=== PATIENT | male | born 1995 | race Two or more races ===

== ENCOUNTER 2022-04-28 15:24 | Emergency (ER) | payer MEDICAID, OTHER ==
[~2022-04-28] VITALS: Ht 172.7 cm; Wt 70.0 kg
[2022-04-28] MEDS ORDERED: NALOXONE HCL 0.4 MG/ML VIAL IV ONE (15:30)
[2022-04-28 16:36] LABS: Salicylate < 1.7 mg/dL (2.8-20.0)
[2022-04-28 16:39] LABS: Hematocrit 46.7 % (41.0-53.0); Hemoglobin 15.8 g/dL (13.5-17.5); Mean Corpuscular Hemoglobin 31.7 pg (28.0-32.0); Mean Corpuscular Hgb Conc. 33.8 g/dL (32.0-36.0); Mean Corpuscular Volume 93.9 fL (80.0-100.0); Red Blood Cells 4.97 10^6/uL (4.5-5.90); Red Cell Distribution Width 14.4 % (11.8-14.3)
[2022-04-28 16:41] LABS: Band Neutrophils % (manual) 0; Basophils % (manual) 0 (0.0-2.0); Blast Cells 0; Metamyelocytes % 0; Myelocytes % 0; Promyelocytes % 0; Reactive Lymphocytes 0
[2022-04-28 16:44] LABS: Acetaminophen < 2.0 ug/mL (10-30)
[2022-04-28 16:48] LABS: Alanine Aminotransferase 57 U/L (16-61); Albumin 4.7 g/dL (3.4-5.0); Alkaline Phosphatase 110 U/L (45-117); Anion Gap 13 (5-15); Aspartate Aminotransferase 28 U/L (15-37); BUN/Creatinine Ratio 11.7; Bilirubin, Total 0.6 mg/dL (0.2-1.0); Blood Alcohol < 3.0 mg/dL (0-5); Blood Urea Nitrogen 17 mg/dL (7-18); Carbon Dioxide 23 mmol/L (21-32); Chloride 100 mmol/L (98-107); GFR African American 76 mL/min; GFR Non-African American 63 mL/min; Glucose 244 mg/dL (74-106); Potassium 3.7 mmol/L (3.5-5.1); Sodium 136 mmol/L (136-145); Total Protein 8.8 g/dL (6.4-8.2)
[2022-04-28 17:16] LABS: Lymphocytes % (manual) 26 (10.0-50.0)
[2022-04-28 17:17] LABS: Eosinophils % (manual) 1 (0-7); Monocytes % (manual) 7 (0-12)
[2022-04-28 21:48] VITALS: BP 152/85
== END 2022-04-28 21:53 | disposition home or self-care (01) ==
LOC: EDBD 15:24 → ER 15:24
DX: T40.411A Poisoning by fentanyl or fentanyl analogs, accidental (unintentional), initial encounter (principal); S01.01XA Laceration without foreign body of scalp, initial encounter; Z88.0 Allergy status to penicillin; X58.XXXA Exposure to other specified factors, initial encounter; Y93.89 Activity, other specified; Y92.89 Other specified places as the place of occurrence of the external cause; Y99.8 Other external cause status
CPT/HCPCS: 12002; 36415; 80053; 80320; 80329; 85007; 85027; 93005

== ENCOUNTER 2023-11-15 13:38 | Emergency (ER) | payer MEDICAID ==
[~2023-11-15] VITALS: Ht 182.9 cm; Wt 79.0 kg
[2023-11-15] MEDS: SODIUM CHLORIDE 0.9% 1,000 ML IVB ONE (14:18)
[2023-11-15 14:20] VITALS: PULSE 81; RESP 18; TEMP 97.8; O2SAT 98
[2023-11-15] MEDS: PANTOPRAZOLE 40 MG/10 ML VIAL INJ IV ONE (14:21)
[2023-11-15] MEDS: PROCHLORPERAZINE EDISYLATE 5 MG/ML 2ML VIAL IV ONE (14:21)
[2023-11-15 14:22] LABS: Basophils # (auto) 0.1 10 ^3/uL (0-0.2); Eosinophils # (auto) 0.1 10 ^3/uL (0-0.8); Eosinophils % (auto) 0.5 % (0.0-7.0); Lymphocytes # (auto) 1.9 10 ^3/uL (0.4-5.4); Monocytes # (auto) 0.9 10 ^3/uL (0-1.3)
[2023-11-15] MEDS: MORPHINE SULFATE 4 MG/ML SYR/VIAL IV ONE (14:22)
[2023-11-15 14:28] LABS: Basophils % (auto) 0.4 % (0.0-2.0); Hematocrit 44.4 % (41.0-53.0); Hemoglobin 15.2 g/dL (13.5-17.5); Lymphocytes % (auto) 14.3 % (10.0-50.0); Mean Corpuscular Hemoglobin 31.7 pg (28.0-32.0); Mean Corpuscular Hgb Conc. 34.3 g/dL (32.0-36.0); Mean Corpuscular Volume 92.4 fL (80.0-100.0); Monocytes % (auto) 6.6 % (0.0-12.0); Neutrophils # (auto) 10.5 10 ^3/uL (1.6-8.6); Neutrophils % (auto) 78.2 % (37.0-80.0); Platelet Count (auto) 585 10^3/uL (140-450); Red Cell Distribution Width 15.2 % (11.8-14.3); White Blood Cell 13.5 10^3/uL (4.4-10.8)
[2023-11-15 14:40] LABS: Alanine Aminotransferase 38 U/L (7-40); Albumin 5.3 g/dL (3.2-4.8); Alkaline Phosphatase 100 U/L (46-116); Anion Gap 4 (5-15); Aspartate Aminotransferase 31 U/L (13-40); Bilirubin, Total 0.7 mg/dL (0.2-1.0); Blood Urea Nitrogen 13 mg/dL (9-23); Calcium 10.8 mg/dL (8.7-10.4); Carbon Dioxide 29 mmol/L (20-30); Chloride 105 mmol/L (98-107); Glucose 92 mg/dL (74-106); Lipase 66 U/L (12-53); Potassium 4.4 mmol/L (3.5-5.1); Sodium 138 mmol/L (136-145); Total Protein 8.6 g/dL (5.7-8.2)
[2023-11-15 14:52] VITALS: BP 138/93; PULSE 82; RESP 20
[2023-11-15] MEDS ORDERED: ZOFR4T PO (16:32)
[2023-11-15] MEDS ORDERED: PANT40TA2 PO (16:32)
== END 2023-11-15 16:47 | disposition home or self-care (01) ==
LOC: ER 13:38
DX: F12.90 Cannabis use, unspecified, uncomplicated (principal); R11.2 Nausea with vomiting, unspecified; R53.1 Weakness; F10.90 Alcohol use, unspecified, uncomplicated; Z98.890 Other specified postprocedural states; Z79.899 Other long term (current) drug therapy; Y90.0 Blood alcohol level of less than 20 mg/100 ml
CPT/HCPCS: 36415; 80053; 83690; 85025; 96361; 96374; 96375; 99284; J0780; J2270; J2470; J7030

== ENCOUNTER 2024-03-13 19:46 | Inpatient (IN) | payer MEDICAID ==
[~2024-03-13] VITALS: Ht 177.8 cm; Wt 76.5 kg
[~2024-03-13 19:46] MED LIST: PANT40TA2 PO; ZOFR4T PO
[2024-03-13 19:50] VITALS: PULSE 116; RESP 19; O2SAT 99
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
[2024-03-14] VITALS (82 sets, daily range): BP systolic 94–144; BP diastolic 48–92; PULSE 75–127; RESP 15–22; TEMP 99.3–102.9; O2SAT 93–100
[2024-03-14] MEDS: PROPOFOL 100 ML IV ONE (02:00)
[2024-03-14] MEDS: ROCURONIUM 10MG/ML 10ML VIAL IV ONE ×2 (02:00→02:09)
[2024-03-14] MEDS: NALOXONE HCL 1MG/ML 2ML SYRINGE ONE (02:01)
[2024-03-14] MEDS: NALOXONE HCL 0.4 MG/ML VIAL ONE (02:01)
[2024-03-14] MEDS: ETOMIDATE (2MG/ML) 20ML VIAL IV ONE ×2 (02:01→02:08)
--- NOTE | 2024-03-14 02:09 | ED.PDOC ---
Was a procedure done? Was a procedure done?: Yes Sedation Sedation?: Yes Informed consent obtained: No Sedation start time: 01:49 Sedation end time: 02:08 Sedation total time: 19 minutes Central Line Recorder of insertion practice: Sample Carrier Occupation of limited radiology technician: Attending Physician Indication: Volume resuscitation Room prepared for procedure: Yes Sample Carrier performed hand hygien: Yes Maximal sterile barrier precau: Mask/Eye shield, Sterile gown, Cap, Sterlie gloves, Large sterlie drape Skin Preparation: Chlorhexidine gluconate, Providine iodine Skin preparation completely dr: Yes Insertion site: Right, Femoral Central line catheter type: Ufp-[id number]-dah dialysis Number of lumens: 3 Central line exchanged over a: No Antiseptic ointment applied to: No Post Assessment: Chest X-Ray, Proper placement Informed consent obtained: No Risks/benefits/alt described: No Intubation Indication: Respiratory Insufficiency, Altered Mental Status Prep: Preoxygenation Pretreated with: Nothing Medicated with: Other (100mg rocuronium and 20mg etomidate IVP at 0149) Intubation Approach: Orotracheal (8.0 ETT size ) Intubation size: cm (24) Informed consent obtained: No Risks/benefits/alt described: No I personally scribed for REENA MAI MD ([email or web address]) on 03/14/24 at 02:09. Electronically submitted by Marcial Beth [email or web address]). REENA MAI MD Mar 14, 2024 02:09
[2024-03-14] MEDS: PROPOFOL 100 ML IV SCH (02:10)
[2024-03-14] MEDS: NALOXONE HCL 1MG/ML 2ML SYRINGE IV ONE ×2 (02:10)
--- NOTE | 2024-03-14 02:14 | ED.PDOC ---
Departure 1 Departure Time of Disposition: 02:11 (Patient was clinically sober tolerating p.o. and feeling well. Patient's mom was on her way to pick patient up patient then asked to use the restroom. Patient was went to the restroom spent a long time there and when he returned from the rest room he was somnolent. He laid down and became unresponsive. We gave him narcan without effect, he was intubated and central line placed emergent. Patient was found to have an empty bag in his pocket with residual white powder. ) Impression: Primary Impression: Polysubstance abuse Additional Impressions: Opiate overdose Qualified Codes: T40.601A - Poisoning by unspecified narcotics, accidental (unintentional), initial encounter Acute respiratory failure Qualified Codes: J96.01 - Acute respiratory failure with hypoxia Disposition: ADMITTED INPATIENT Admit to: ICU Condition: Critical Discharged With: Self REENA MAI MD Mar 14, 2024 02:14
[2024-03-14 02:15] LABS: Urine Bacteria None Seen /hpf (None Seen)
[2024-03-14] MEDS: fentaNYL Drip 2500mCg/250mlNS 250 ML IV SCH (02:36)
[2024-03-14 02:37] LABS: Urine Blood Negative /uL (Negative); Urine Clarity Clear (Clear); Urine Color Light-Yellow (Yellow); Urine Mucus FEW (None Seen); Urine Protein, UAD 1+ (Negative); Urine Specific Gravity 1.019 (1.001-1.035); Urine Squamous Epithelial Cell FEW /hpf (<5); Urine Urobilinogen Normal (Negative); Urine WBC 2 /hpf (0 - 3); Urine pH 6.5 (5.0-9.0)
[2024-03-14 02:46] LABS: Amphetamine Screen, Urine Neg (NEGATIVE); Barbiturate Scree,Urine Neg (NEGATIVE); Benzodiazephine Screen, Urine Pos (NEGATIVE); Cannabinoid Screen, Urine Pos (NEGATIVE); Cocaine Screen, Urine Pos (NEGATIVE); Opiate Scree,Urine Neg (NEGATIVE); Phencyclidine Screen, Urine Neg (NEGATIVE)
[2024-03-14] MEDS: MIDAZOLAM DRIP 50 mg/50mL 50 ML IV SCH (03:15)
--- NOTE | 2024-03-14 03:18 | DVHHPRES ---
History of Present Illness Resident Creating Document: MERLE FORTUNE RESIDENT History of Present Illness A 28-year-old male with past medical history of hypertension who was brought in by EMS due to decreased responsiveness and ALOC. On scene, pt was unresponsive with blood glucose 263, he was given 8mg Narcan by Law enforcement followed by another 4mg by EMS (possibly intranasal). On arrival to the ER, patient was AOx1, which progressively improved to AOx4 over a couple of hours, patient ate and drank and was ambulating normally. Patient's mother was called and she stated she will come pick her son up. While awaiting pickup, Patient went to use the restroom, after spending a long time in the restroom patient was back, while speaking to the RN, he started nodding off, patient was noted to have SpO2 of 65% on RA and became unresponsive, he was subsequently given Narcan to which he did not respond. Patient was emergently intubated. A small empty packet wit h whitish residue was found in patient's pocket. Past Medical History Hypertension Family History Denies Past Social History Unable to obtain complete social history as patient intubated Review of Systems Review of Systems Unable to complete review of systems as patient intubated Allergies: Coded Allergies: Penicillins (Verified Allergy, Unknown, 03/14/24) Medications Current Medications Medications Dose Ordered Sig/Karlee Route Start Time Stop Time Status Last Admin Dose Admin Propofol 100 ml @ 6 mls/hr [id number] IV 03/14/24 02:00 03/14/24 02:10 6 MLS/HR Midazolam HCl 50 ml @ 1 mls/hr Q24H IV 03/14/24 02:15 Fentanyl Citrate 250 ml @ 2.5 mls/hr Q24H IV 03/14/24 02:15 03/14/24 02:36 2.5 MLS/HR Norepinephrine Bitartrate 250 ml @ 3.75 mls/hr Q24H IV 03/14/24 02:15 Exam Vital Signs Vital Signs Date Time Temp Pulse Resp B/P (MAP) Pulse Ox O2 Delivery O2 Flow Rate FiO2 03/14/24 02:36 127/71 03/14/24 02:00 16 98 40 03/14/24 00:00 94 03/13/24 19:50 Nasal Cannula* 2 03/13/24 19:50 98.4 98.4 General Appearance: Other (Patient intubated and on mechanical ventilation) Respiratory: Clear to auscultation, Normal air movement Cardiovascular: Regular rate, Normal S1, Normal S2, Other (Tachycardic) Abdominal: Soft, No tenderness Extremities: No clubbing, No cyanosis, No edema Skin: No rashes, No significant lesion Neuro: Other (Patient intubated) Labs/Xrays Labs Test 03/14/24 02:00 Range/Units Urine Color Light-yellow Yellow Urine Clarity Clear Clear Urine pH 6.5 5.0-9.0 Urine Specific [place] 1.019 1.001-1.035 Urine Protein 1+ H Negative Urine Ketones Negative Negative Urine Blood Negative Negative /uL Urine Nitrite Negative Negative Urine Bilirubin Negative Negative Urine Urobilinogen Normal Negative mg/dL Urine Leukocyte Esterase Negative Negative /uL Urine RBC 1 0 - 3 /hpf Urine WBC 2 0 - 3 /hpf Urine Squamous Epithelial Cells Few <5 /hpf Urine Bacteria None seen None Seen /hpf Urine Mucus Few None Seen Urine Glucose 2+ H Normal mg/dL Urine Opiates Screen Neg NEGATIVE Urine Fentanyl Screen Pos NEGATIVE Urine Barbiturates Screen Neg NEGATIVE Urine Phencyclidine Screen Neg NEGATIVE Urine Amphetamines Screen Neg NEGATIVE Urine Benzodiazepines Screen Pos NEGATIVE Urine Cocaine Screen Pos NEGATIVE Urine Cannabinoids Screen Pos NEGATIVE Assessment/Plan Assessment/Plan Drug overdose Respiratory acidosis with compensatory metabolic alkalosis; due to above - UDS positive for fentanyl, cocaine, benzodiazepine, cannabis - intubated and mechanically ventilated - ordered CK, serum acetaminophen levels, serum alcohol Possible aspiration pneumonia sepsis d/t above - CXR: Patchy consolidations in right mid and lower lungs. Age-indeterminate fracture of lateral end of the left 2nd rib. Endotracheal tube is noted with its distal end located approximately 3.3 cm proximal to the angus, in appropriate position. Nasogastric tube is noted with its distal end in the stomach in appropriate position. - IV zosyn, IV azithromycin - NS 1 L bolus, IV NS at 100 cc/hour maintenance - blood cultures, respiratory cultures, lactic acid, COVID and influenza testing - ordered MRSA screen Opioid use disorder PUD prophylaxis: protonix 40mg DVT prophylaxis: Lovenox 40mg SC Goals of care: Full code, discussed for >12 minutes with Patient's mother Ms. Flores at [phone] Che Plan discussed with: Patient, Other (RN) Date of Service: Mar 14, 2024 Billing Provider: CHANCE CHE MD Common Visit Codes: [id number] INP/OBS CARE (HIGH) MERLE FORTUNE RESIDENT Mar 14, 2024 03:18 CHANCE CHE MD Mar 15, 2024 12:17
--- NOTE | 2024-03-14 03:28 | DVH ---
Examination: CXR1 Clinical Indication: INTUBATION Comparison: None. Technique: Frontal radiograph of the chest were obtained. Findings: Limited evaluation, as the patient is in rotation. Inhomogeneous radiopacities in right mid and lower lungs, suggestive of patchy consolidations. No pl eural effusion on either side in current study. There is no pneumothorax. Endotracheal tube is noted with its distal end located approximately 3.3 cm proximal to the angus, i n appropriate position. No evidence of cardiomegaly. Nasogastric tube is noted with its distal end in the stomach, in appropriate position. Orthopedic fixation hardware is noted over in upper lumbar spine, along with hypodensity noted over t he cardiac shadow in the left paramedian location, postoperative changes. Please correlate with oper ative history. Age-indeterminate fracture of lateral end of the left 2nd rib. Impression: 1. Patchy consolidations in right mid and lower lungs. 2. Age-indeterminate fracture of lateral end of the left 2nd rib. 3. Endotracheal tube is noted with its distal end located approximately 3.3 cm proximal to the osmar a, in appropriate position. 4. Nasogastric tube is noted with its distal end in the stomach in appropriate position. Electronically Signed 03/14/2024 03:28 Yohan Fitzpatrick
[2024-03-14 03:50] LABS: Base Excess 0.8 mmol/L (-2.0-3.0)
[2024-03-14 03:56] LABS: Hemoglobin 13.4 g/dL (13.5-17.5)
[2024-03-14 03:58] LABS: Basophils # (auto) 0.2 10 ^3/uL (0-0.2); Eosinophils # (auto) 0 10 ^3/uL (0-0.8); Hematocrit 40.9 % (41.0-53.0); Lymphocytes # (auto) 0.7 10 ^3/uL (0.4-5.4); Lymphocytes % (auto) 2.7 % (10.0-50.0); Mean Corpuscular Hemoglobin 31.9 pg (28.0-32.0); Mean Corpuscular Hgb Conc. 32.7 g/dL (32.0-36.0); Mean Corpuscular Volume 97.4 fL (80.0-100.0); Monocytes # (auto) 1.6 10 ^3/uL (0-1.3); Monocytes % (auto) 6.6 % (0.0-12.0); Neutrophils # (auto) 21.9 10 ^3/uL (1.6-8.6); Neutrophils % (auto) 89.7 % (37.0-80.0); Nucleated Red Blood Cells % 0.1 %; Platelet Count (auto) 520 10^3/uL (140-450); Red Cell Distribution Width 14.5 % (11.8-14.3); White Blood Cell 24.4 10^3/uL (4.4-10.8)
[2024-03-14] MEDS ORDERED: PIPERACILLIN-TAZOB 3.375GM 100 ML IV SCH (04:30)
[2024-03-14 04:34] LABS: Alanine Aminotransferase 24 U/L (7-40); Albumin 4.5 g/dL (3.2-4.8); Alkaline Phosphatase 75 U/L (46-116); Anion Gap 5 (5-15); Aspartate Aminotransferase 30 U/L (13-40); BUN/Creatinine Ratio 11.4 (10.0-20.0); Blood Urea Nitrogen 12 mg/dL (9-23); Calcium 9.9 mg/dL (8.7-10.4); Carbon Dioxide 27 mmol/L (20-31); Chloride 107 mmol/L (98-107); Potassium 4.1 mmol/L (3.5-5.1); Sodium 139 mmol/L (136-145)
[2024-03-14 04:35] LABS: Bilirubin, Total 0.6 mg/dL (0.2-1.0)
[2024-03-14 04:39] LABS: Blood Alcohol < 3.0 mg/dL (<10); Creatine Kinase IFCC 252 U/L (46-171); Glucose 146 mg/dL (74-106)
[2024-03-14] MEDS: AZITHROMYCIN 500MG/ 250ML 250 ML IV SCH (04:56)
[2024-03-14] MEDS: SODIUM CHLORIDE 0.9% 1,000 ML IV ONE (04:56)
[2024-03-14] MEDS: SODIUM CHLORIDE 0.9% 1,000 ML IV SCH (04:57)
[2024-03-14] MEDS: NOREPINEPHRINE 8 MG/250ML KIT 250 ML IV SCH (06:30)
--- NOTE | 2024-03-14 07:08 | ECG ---
[facility] Test Date: 2024-03-13 Test Time: 19:54:37 Pat Name: MISSY MYERS Department: ER Room: [address] [place] [address] A Gender: M Traffic Manager: : 1995 Requested By: REENA MAI Order Number: [id number] Reading MD: Garth Richards Measurements Intervals [place] Rate: 103 P: 69 VA: 139 QRS: 62 QRSD: 96 T: 54 QT: 356 QTc: 466 Interpretive Statements Sinus tachycardia Probable left ventricular hypertrophy Electronically Signed On 03-17-2024 16:29:07 PST by Garth Richards Please click the below link to view image of tracing.
[2024-03-14 07:54] LABS: Base Excess -4.1 mmol/L (-2.0-3.0)
[2024-03-14] MEDS: ENOXAPARIN SOD 40 MG/0.4 ML SYRINGE SC SCH (09:47)
[2024-03-14] MEDS: PANTOPRAZOLE 40 MG/10 ML VIAL INJ IV SCH (09:47)
[2024-03-14] MEDS: ACETAMINOPHEN 650 mg PER 20.3 mL UD GT PRN (13:54)
[2024-03-14 15:54] LABS: Folate (Folic Acid) 13.28 ng/mL (>5.38)
--- NOTE | 2024-03-14 16:28 | DVH ---
EXAM: XR Chest, 1 View CLINICAL INDICATION: PNA TECHNIQUE: Frontal view of the chest. COMPARISON: XY CHEST XRAY 1 VIEW on DOS: 03/14/24 FINDINGS: LUNGS AND PLEURAL SPACES: Bibasilar atelectasis or pneumonia. No pneumothorax. HEART: Unremarkable. No cardiomegaly. MEDIASTINUM: Unremarkable. Normal mediastinal contour. BONES/JOINTS: Unremarkable. No acute fracture. TUBES, LINES AND DEVICES: Enteric tube tip in the stomach. OTHER FINDINGS: . . ETt. IMPRESSION: Bibasilar atelectasis or pneumonia. HS:Y
[2024-03-14] MEDS: MEROPENEM 1GM IVPB 50 ML IV ONE (16:51)
[2024-03-14 17:46] LABS: Alanine Aminotransferase 34 U/L (7-40); Albumin 3.9 g/dL (3.2-4.8); Alkaline Phosphatase 70 U/L (46-116); Anion Gap 6 (5-15); Aspartate Aminotransferase 108 U/L (13-40); BUN/Creatinine Ratio 10.3 (10.0-20.0); Blood Urea Nitrogen 10 mg/dL (9-23); Calcium 9.3 mg/dL (8.7-10.4); Carbon Dioxide 25 mmol/L (20-31); Chloride 112 mmol/L (98-107); Glucose 87 mg/dL (74-106); Magnesium 1.9 mg/dL (1.6-2.6); Potassium 4.1 mmol/L (3.5-5.1); Sodium 143 mmol/L (136-145)
[2024-03-14 17:47] LABS: Bilirubin, Total 0.6 mg/dL (0.2-1.0)
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
[2024-03-14] MEDS: MEROPENEM 1GM IVPB 50 ML IV SCH (22:45)
[2024-03-14] MEDS ORDERED: Jevity 1.2 Cal/Fiber 1 Liter GT SCH (22:45)
[2024-03-15] VITALS (87 sets, daily range): BP systolic 97–141; BP diastolic 46–85; PULSE 83–112; RESP 7–22; TEMP 97.9–101.1; O2SAT 94–100
[2024-03-15 05:25] LABS: Basophils # (auto) 0.3 10 ^3/uL (0-0.2); Basophils % (auto) 1.4 % (0.0-2.0); Eosinophils # (auto) 0.2 10 ^3/uL (0-0.8); Eosinophils % (auto) 0.9 % (0.0-7.0); Hematocrit 41.2 % (41.0-53.0); Hemoglobin 13.7 g/dL (13.5-17.5); Lymphocytes # (auto) 2.7 10 ^3/uL (0.4-5.4); Lymphocytes % (auto) 11.3 % (10.0-50.0); Mean Corpuscular Hemoglobin 31.8 pg (28.0-32.0); Mean Corpuscular Hgb Conc. 33.3 g/dL (32.0-36.0); Mean Corpuscular Volume 95.7 fL (80.0-100.0); Monocytes # (auto) 2.4 10 ^3/uL (0-1.3); Monocytes % (auto) 10.2 % (0.0-12.0); Neutrophils # (auto) 18.2 10 ^3/uL (1.6-8.6); Neutrophils % (auto) 76.2 % (37.0-80.0); Platelet Count (auto) 501 10^3/uL (140-450); Red Cell Distribution Width 14.3 % (11.8-14.3); White Blood Cell 23.9 10^3/uL (4.4-10.8)
[2024-03-15 05:39] LABS: Potassium 3.9 mmol/L (3.5-5.1); Sodium 140 mmol/L (136-145)
[2024-03-15 05:40] LABS: Anion Gap 7 (5-15); Calcium 9.7 mg/dL (8.7-10.4); Carbon Dioxide 26 mmol/L (20-31)
[2024-03-15 05:45] LABS: BUN/Creatinine Ratio 8.5 (10.0-20.0)
[2024-03-15 05:46] LABS: Blood Urea Nitrogen 6 mg/dL (9-23); Chloride 107 mmol/L (98-107); Glucose 73 mg/dL (74-106); Magnesium 1.9 mg/dL (1.6-2.6)
--- NOTE | 2024-03-15 06:00 | DVH ---
CHEST RADIOGRAPH Indication: mech vent Technique: Single frontal view of the chest was obtained COMPARISON: XY CHEST XRAY 1 VIEW on DOS: 03/14/24, XY CHEST XRAY 1 VIEW on DOS: 03/14/24 FINDINGS: Lines and Tubes: Endotracheal tube and enteric catheter in satisfactory position. Lungs: Right lower lobe airspace disease. Pleura: No effusion. No pneumothorax. Cardiomediastinal contours: Unremarkable Bones: Unchanged IMPRESSION: Lines and tubes in satisfactory position. No significant interval change.
[2024-03-15] MEDS: PROPOFOL 100 ML IV SCH (06:50)
[2024-03-15 07:48] LABS: INR 1.21 (0.9-1.15); Partial Thromboplastin Time 31.9 SEC (24.5-34.5); Prothrombin Time 12.6 sec (9.3-11.8)
[2024-03-15 08:11] LABS: Base Excess -4.7 mmol/L (-2.0-3.0)
[2024-03-15] MEDS: MAGNESIUM SULFATE 1GM/100ML 100 ML IV ONE (10:49)
[2024-03-15] MEDS: POTASSIUM CHL 20MEQ/100ML 100 ML IV ONE (10:50)
[2024-03-15] MEDS: DOCUSATE ORAL LIQUID 100 MG/10 ML UD GT SCH (10:50)
--- NOTE | 2024-03-15 12:49 | DVHSR ---
APPROVED REPORT EXAM: Two-dimensional and M-mode echocardiogram with Doppler and color Doppler. Blood Pressure: 116/64 mmHg INDICATION Drug user RISK FACTORS Height: 70, Weight: 197 DIMENSIONS LVDd4.7 (3.8-5.7cm)LA (2D)3.8 (1.9-4.0cm)Aortic Root3.6 (2.0-3.7cm) LVDs3.5 (2.5-4.0cm)LA (MM) (1.9-4.0cm)Aortic Cusp Exc2.4 (1.5-2.0cm) EF (%) 51.0 (55-70%)Rt. Atrium4.8 (1.9-4.0cm)Asc. Aorta cm IVSd1.3 (0.7-1.1cm)RV (D) (1.8-2.4cm) PWd1.3 (0.7-1.1cm) Mitral Valve MitralMitral Stenosis E wave0.72m/sMV Mean GR.mmHg A wave0.62m/sMV Peak GR.mmHg E/A ratio1.22D MVAcm2 DECEL [id number] 1/2 [id number] IVRTmsDop MVA3.89cm2 Aortic Valve Aortic ValveAortic Stenosis V10.87m/Star Mean GR.3mmHg V21.17m/Star Peak GR.6mmHg LVOT Diameter2.8 (1.8-2.4cm)Doppler AVA4.58cm2 Pulmonic Valve V20.81m/s Conclusion lvef 60% by vsual estimate normal rv function normal atria no severe valve abnormalities noted
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
[2024-03-15] MEDS: METHADONE HCL 10 MG TAB NG SCH (21:46)
[2024-03-15] MEDS: METOCLOPRAMIDE HCL 5MG/ml INJ 2ml VIAL IV SCH (21:46)
[2024-03-16] VITALS (15 sets, daily range): BP systolic 99–130; BP diastolic 48–86; PULSE 72–120; RESP 14–25; O2SAT 96–100
--- NOTE | 2024-03-16 05:03 | DVH ---
CHEST RADIOGRAPH Indication: pna Technique: Single frontal view of the chest was obtained Comparison: XY CHEST PORTABLE on DOS: 03/15/24 FINDINGS: Lines and Tubes: The endotracheal tube terminates 1.6 cm above the angus. The enteric tube courses b elow the left hemidiaphragm and the tip extends outside the field of view. Lungs: Right basilar opacities are similar to prior study. Pleura: No effusion. No pneumothorax. Cardiomediastinal contours: Unremarkable Bones: No acute osseous abnormality. Bone plate noted overlying the mid thorax. IMPRESSION: 1. Stable position of the support lines and tubes. Right basilar opacities similar to prior study.
[2024-03-16 05:30] LABS: Basophils # (auto) 0.1 10 ^3/uL (0-0.2); Eosinophils # (auto) 0.5 10 ^3/uL (0-0.8); Red Cell Distribution Width 14.2 % (11.8-14.3)
[2024-03-16 05:33] LABS: Basophils % (auto) 0.6 % (0.0-2.0); Eosinophils % (auto) 2.7 % (0.0-7.0); Hematocrit 43.9 % (41.0-53.0); Hemoglobin 14.6 g/dL (13.5-17.5); Lymphocytes # (auto) 1.6 10 ^3/uL (0.4-5.4); Lymphocytes % (auto) 8.9 % (10.0-50.0); Mean Corpuscular Hgb Conc. 33.3 g/dL (32.0-36.0); Monocytes # (auto) 2.5 10 ^3/uL (0-1.3); Monocytes % (auto) 14.2 % (0.0-12.0); Neutrophils % (auto) 73.6 % (37.0-80.0); Platelet Count (auto) 488 10^3/uL (140-450); Red Blood Cells 4.58 10^6/uL (4.5-5.90); White Blood Cell 17.7 10^3/uL (4.4-10.8)
[2024-03-16 05:47] LABS: Albumin 4.2 g/dL (3.2-4.8); Alkaline Phosphatase 84 U/L (46-116); Anion Gap 7 (5-15); BUN/Creatinine Ratio 5.3 (10.0-20.0); Calcium 10.1 mg/dL (8.7-10.4); Carbon Dioxide 28 mmol/L (20-31); Chloride 103 mmol/L (98-107); Magnesium 2.1 mg/dL (1.6-2.6); Potassium 3.9 mmol/L (3.5-5.1); Sodium 138 mmol/L (136-145)
[2024-03-16 05:48] LABS: Bilirubin, Total 0.7 mg/dL (0.2-1.0); Total Protein 7.3 g/dL (5.7-8.2)
[2024-03-16 05:49] LABS: Alanine Aminotransferase 58 U/L (7-40); Aspartate Aminotransferase 192 U/L (13-40); Blood Urea Nitrogen 5 mg/dL (9-23); Glucose 69 mg/dL (74-106)
[2024-03-16 06:59] LABS: Base Excess -2.9 mmol/L (-2.0-3.0)
[2024-03-16] MEDS: POTASSIUM CHL 20MEQ/100ML 100 ML IV ONE (10:10)
[2024-03-16] MEDS ORDERED: VANCOMYCIN PER PHARMACY 0 MG IV SCH (13:30)
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
[2024-03-16] MEDS: VANCOMYCIN 1GM/250ML KIT 250 ML IV SCH (17:00)
[2024-03-17] VITALS (11 sets, daily range): BP systolic 95–120; BP diastolic 36–75; PULSE 70–109; RESP 9–21; O2SAT 93–100
[2024-03-17] MEDS: VANCOMYCIN 1GM/250ML KIT 250 ML IV SCH (01:00)
[2024-03-17 04:31] LABS: Rapid Influenza A Negative (Negative); Rapid Influenza B Negative (Negative)
[2024-03-17 04:32] LABS: COVID19 ANTIGEN SOFIA FIA POSITIVE (NEGATIVE)
--- NOTE | 2024-03-17 04:52 | DVH ---
CHEST RADIOGRAPH Indication: pna Technique: Single frontal view of the chest was obtained COMPARISON: XY CHEST XRAY 1 VIEW on DOS: 03/16/24, XY CHEST PORTABLE on DOS: 03/15/24, XY CHEST XRAY 1 VIEW on DOS: 03/14/24, XY CHEST XRAY 1 VIEW on DOS: 03/14/24 FINDINGS: Lines and Tubes: Endotracheal tube and enteric catheter in satisfactory position. Lungs: Mild congestion Pleura: No effusion. No pneumothorax. Cardiomediastinal contours: Unremarkable Bones: Unchanged IMPRESSION: Lines and tubes in satisfactory position. No significant interval change.
[2024-03-17 06:41] LABS: Basophils # (auto) 0.1 10 ^3/uL (0-0.2); Basophils % (auto) 0.6 % (0.0-2.0); Eosinophils # (auto) 0.5 10 ^3/uL (0-0.8); Eosinophils % (auto) 4.5 % (0.0-7.0); Hematocrit 37.1 % (41.0-53.0); Hemoglobin 12.8 g/dL (13.5-17.5); Lymphocytes # (auto) 1.5 10 ^3/uL (0.4-5.4); Lymphocytes % (auto) 14.8 % (10.0-50.0); Mean Corpuscular Hemoglobin 32.4 pg (28.0-32.0); Mean Corpuscular Hgb Conc. 34.4 g/dL (32.0-36.0); Mean Corpuscular Volume 94.1 fL (80.0-100.0); Monocytes # (auto) 1.5 10 ^3/uL (0-1.3); Monocytes % (auto) 14.6 % (0.0-12.0); Neutrophils # (auto) 6.6 10 ^3/uL (1.6-8.6); Neutrophils % (auto) 65.5 % (37.0-80.0); Platelet Count (auto) 502 10^3/uL (140-450); Red Blood Cells 3.95 10^6/uL (4.5-5.90); Red Cell Distribution Width 13.8 % (11.8-14.3); White Blood Cell 10.1 10^3/uL (4.4-10.8)
[2024-03-17 07:00] LABS: Albumin 4.1 g/dL (3.2-4.8); Alkaline Phosphatase 89 U/L (46-116); Anion Gap 10 (5-15); BUN/Creatinine Ratio 8.9 (10.0-20.0); Calcium 9.5 mg/dL (8.7-10.4); Carbon Dioxide 25 mmol/L (20-31); Chloride 104 mmol/L (98-107); Glucose 81 mg/dL (74-106); Magnesium 1.8 mg/dL (1.6-2.6); Sodium 139 mmol/L (136-145)
[2024-03-17 07:01] LABS: Bilirubin, Total 0.9 mg/dL (0.2-1.0); Total Protein 6.8 g/dL (5.7-8.2)
[2024-03-17 07:03] LABS: Alanine Aminotransferase 65 U/L (7-40); Aspartate Aminotransferase 200 U/L (13-40); Blood Urea Nitrogen 7 mg/dL (9-23); Potassium 3.4 mmol/L (3.5-5.1)
[2024-03-17] MEDS: POTASSIUM CHL 20MEQ/100ML 100 ML IV SCH (08:30)
[2024-03-17 09:17] LABS: Hepatitis A Ab IgM Negative; Hepatitis B Core IgM Negative (Negative); Hepatitis B Surface Antigen Negative (Negative); Hepatitis C Antibody Negative (Negative)
[2024-03-17 10:19] LABS: Base Excess -2.7 mmol/L (-2.0-3.0)
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
--- NOTE | 2024-03-18 05:24 | DVH ---
CHEST RADIOGRAPH Indication: pna Technique: Single frontal view of the chest was obtained Comparison: XY CHEST XRAY 1 VIEW on DOS: 03/17/24 FINDINGS: Lines and Tubes: Removal of the endotracheal and enteric tube. Lungs: The lungs are hypoinflated. Mild hazy bilateral opacities. Pleura: No effusion. No pneumothorax. Cardiomediastinal contours: Unremarkable Bones: No acute osseous abnormality. Orthopedic hardware in the thoracic spine. IMPRESSION: 1. Mild hazy bilateral opacities which may reflect infectious or inflammatory etiology.
[2024-03-18] MEDS: ERGOCALCIFEROL 50,000 UNIT(1.25MG) CAP PO SCH (08:56)
[2024-03-18] MEDS: PANTOPRAZOLE 40 MG TAB PO ONE (11:00)
[2024-03-18] MEDS: POTASSIUM EFFERVESENT TAB 25 MEQ PO ONE (11:10)
[2024-03-18] MEDS: cefTRIAXone 1GM/50ML D5W 50 ML IV ONE (11:12)
[2024-03-18] MEDS: AZITHROMYCIN 500MG/ 250ML 250 ML IV ONE (12:13)
[2024-03-18 13:34] LABS: Eosinophils # (auto) 0.3 10 ^3/uL (0-0.8); Eosinophils % (auto) 4.4 % (0.0-7.0); Lymphocytes # (auto) 1.6 10 ^3/uL (0.4-5.4); Monocytes # (auto) 1.2 10 ^3/uL (0-1.3); Nucleated Red Blood Cells % 0.1 %; Red Blood Cells 4.12 10^6/uL (4.5-5.90)
[2024-03-18 13:37] LABS: Basophils # (auto) 0 10 ^3/uL (0-0.2); Basophils % (auto) 0.6 % (0.0-2.0); Hematocrit 38.8 % (41.0-53.0); Hemoglobin 13.3 g/dL (13.5-17.5); Lymphocytes % (auto) 20.4 % (10.0-50.0); Mean Corpuscular Hemoglobin 32.3 pg (28.0-32.0); Mean Corpuscular Hgb Conc. 34.2 g/dL (32.0-36.0); Mean Corpuscular Volume 94.3 fL (80.0-100.0); Monocytes % (auto) 15.7 % (0.0-12.0); Neutrophils # (auto) 4.6 10 ^3/uL (1.6-8.6); Neutrophils % (auto) 58.9 % (37.0-80.0); Platelet Count (auto) 588 10^3/uL (140-450); White Blood Cell 7.8 10^3/uL (4.4-10.8)
[2024-03-18 13:49] LABS: Alkaline Phosphatase 75 U/L (46-116); Anion Gap 8 (5-15); Calcium 10.1 mg/dL (8.7-10.4); Carbon Dioxide 28 mmol/L (20-31); Chloride 101 mmol/L (98-107); Glucose 106 mg/dL (74-106); Potassium 4.2 mmol/L (3.5-5.1); Sodium 137 mmol/L (136-145)
[2024-03-18 13:50] LABS: Alanine Aminotransferase 76 U/L (7-40); Albumin 4.8 g/dL (3.2-4.8); Aspartate Aminotransferase 178 U/L (13-40); BUN/Creatinine Ratio 7.5 (10.0-20.0); Blood Urea Nitrogen < 5 mg/dL (9-23); Magnesium 2.2 mg/dL (1.6-2.6)
[2024-03-18 13:52] LABS: Bilirubin, Total 0.6 mg/dL (0.2-1.0); Total Protein 8.1 g/dL (5.7-8.2)
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
[2024-03-18 16:45] VITALS: BP 149/80; PULSE 80; RESP 16; TEMP 97.7; O2SAT 95
[2024-03-18 17:07] VITALS: PULSE 81; RESP 16; O2SAT 94
[2024-03-18 20:00] VITALS: PULSE 78; PULSE 88; RESP 21; O2SAT 95
[2024-03-18 21:00] VITALS: BP 147/93; PULSE 88; RESP 21; TEMP 97.6; O2SAT 95
[2024-03-19] VITALS (7 sets, daily range): BP systolic 123–150; BP diastolic 80–98; PULSE 61–86; RESP 18–20; TEMP 36.9; O2SAT 95–96
[2024-03-19 06:01] LABS: White Blood Cell 7.8 10^3/uL (4.4-10.8)
[2024-03-19 06:05] LABS: Hematocrit 40.2 % (41.0-53.0); Mean Corpuscular Hemoglobin 32.7 pg (28.0-32.0); Mean Corpuscular Hgb Conc. 34.9 g/dL (32.0-36.0); Mean Corpuscular Volume 93.5 fL (80.0-100.0); Platelet Count (auto) 654 10^3/uL (140-450)
[2024-03-19] MEDS: PANTOPRAZOLE 40 MG TAB PO SCH (06:06)
[2024-03-19 06:08] LABS: Band Neutrophils % (manual) 0; Basophils % (manual) 0 (0.0-2.0); Blast Cells 0; Metamyelocytes % 0; Myelocytes % 0; Promyelocytes % 0; Reactive Lymphocytes 0
[2024-03-19 06:22] LABS: Alkaline Phosphatase 75 U/L (46-116); Anion Gap 9 (5-15); BUN/Creatinine Ratio 8.2 (10.0-20.0); Bilirubin, Total 0.6 mg/dL (0.2-1.0); Carbon Dioxide 31 mmol/L (20-31); Chloride 99 mmol/L (98-107); Glucose 97 mg/dL (74-106); Magnesium 2.3 mg/dL (1.6-2.6); Potassium 3.6 mmol/L (3.5-5.1); Sodium 139 mmol/L (136-145)
[2024-03-19 06:24] LABS: Alanine Aminotransferase 71 U/L (7-40); Albumin 4.9 g/dL (3.2-4.8); Aspartate Aminotransferase 125 U/L (13-40); Blood Urea Nitrogen 7 mg/dL (9-23); Calcium 10.6 mg/dL (8.7-10.4); Total Protein 8.2 g/dL (5.7-8.2)
[2024-03-19 06:35] LABS: Eosinophils % (manual) 6 (0-7); Lymphocytes % (manual) 35 (10.0-50.0); Monocytes % (manual) 13 (0-12); Platelet Estimate Increased
[2024-03-19] MEDS: AZITHROMYCIN 500MG/ 250ML 250 ML IV SCH (09:05)
[2024-03-19] MEDS: cefTRIAXone 1GM/50ML D5W 50 ML IV SCH (09:06)
--- NOTE | 2024-03-19 15:12 | DVHDS2 ---
Discharge Summary Date of Admission Mar 14, 2024 at 03:12 Date of Discharge: Mar 19, 2024 Admitting Diagnosis # ?Acute hypoxic/hypercarbic respiratory failure # acute respiratory failure due to drug overdose # ? aspiration pneumonia # acute respiratory acidosis with compensation # COVID 19 Labs/Diagnostic Data: Laboratory Results Test 03/19/24 05:06 03/18/24 04:00 03/17/24 15:56 03/17/24 10:07 White Blood Count 7.8 10^3/uL (4.4-10.8) Red Blood Count 4.30 10^6/uL (4.5-5.90) Hemoglobin 14.0 g/dL (13.5-17.5) Hematocrit 40.2 % (41.0-53.0) Mean Corpuscular Volume 93.5 fL (80.0-100.0) Mean Corpuscular Hemoglobin 32.7 pg (28.0-32.0) Mean Corpuscular Hemoglobin Concent 34.9 g/dL (32.0-36.0) Red Cell Distribution Width 14.0 % (11.8-14.3) Platelet Count 654 10^3/uL (140-450) Mean Platelet Volume 6.6 fL (6.9-10.8) Neutrophils (%) (Auto) % (37.0-80.0) Lymphocytes (%) (Auto) % (10.0-50.0) Monocytes (%) (Auto) % (0.0-12.0) Basophils (%) (Auto) % (0.0-2.0) Neutrophils # (Auto) 10 ^3/uL (1.6-8.6) Lymphocytes # (Auto) 10 ^3/uL (0.4-5.4) Monocytes # (Auto) 10 ^3/uL (0-1.3) Differential Total Cells Counted 100.0 (100) Neutrophils % (Manual) 46 (37.0-80.0) Band Neutrophils % (Manual) 0 Lymphocytes % (Manual) 35 (10.0-50.0) Monocytes % (Manual) 13 (0-12) Eosinophils % (Manual) 6 (0-7) Basophils % (Manual) 0 (0.0-2.0) Metamyelocytes % (manual) 0 Myelocytes % (Manual) 0 Promyelocytes % (Manual) 0 Blast Cells % (Manual) 0 Reactive Lymphocytes 0 Platelet Estimate Increased Sodium Level 139 mmol/L (136-145) Potassium Level 3.6 mmol/L (3.5-5.1) Chloride Level 99 mmol/L (98-107) Carbon Dioxide Level 31 mmol/L (20-31) Anion Gap 9 (5-15) Blood Urea Nitrogen 7 mg/dL (9-23) Creatinine 0.85 mg/dL (0.700-1.30) Glomerular Filtration Rate Calc 122 mL/min (>90) BUN/Creatinine Ratio 8.2 (10.0-20.0) Serum Glucose 97 mg/dL (74-106) Calcium Level 10.6 mg/dL (8.7-10.4) Magnesium Level 2.3 mg/dL (1.6-2.6) Total Bilirubin 0.6 mg/dL (0.2-1.0) Aspartate Amino Transferase (AST) 125 U/L (13-40) Alanine Aminotransferase (ALT) 71 U/L (7-40) Alkaline Phosphatase 75 U/L (46-116) Total Protein 8.2 g/dL (5.7-8.2) Albumin 4.9 g/dL (3.2-4.8) Eosinophils (%) (Auto) 4.4 % (0.0-7.0) Eosinophils # (Auto) 0.3 10 ^3/uL (0-0.8) Basophils # (Auto) 0 10 ^3/uL (0-0.2) Nucleated Red Blood Cells 0.1 % Vancomycin Level Trough 9.3 ug/mL (5-10) Blood Gas Specimen Type Arterial Blood Gas Sample Site Left radial Blood Gas Patient Temperature 37.0 Arterial Blood Date Drawn [id number] Arterial Blood pH 7.373 (7.350-7.450) Arterial Blood Partial Pressure CO2 39.0 mmHg (35.0-48.0) Arterial Blood Partial Pressure O2 86.5 mmHg (83.0-108.0) Arterial Blood HCO3 22.2 mmol/L (21.0-28.0) Arterial Blood Oxygen Saturation 96.3 % (94.0-98.0) Arterial Blood Base Excess -2.7 mmol/L (-2.0-3.0) Arterial Blood Oxyhemoglobin 95.0 % (94.0-98.0) Arterial Blood Carboxyhemoglobin 0.6 % (0.5-1.5) Arterial Blood Methemoglobin 0.7 % (0.0-1.5) Tim[place]o Test Modified Blood Gas Total Hemoglobin 13.60 g/dL (13.5-17.5) Blood Gas Modality Vent - cpap FiO2 % 30.0 Blood Gas Pressure Support 8 Blood Gas PEEP or CPAP 5.0 Test 03/17/24 03:50 03/16/24 11:40 03/16/24 06:52 03/16/24 05:15 Influenza Type A Antigen Negative (Negative) Influenza Type B Antigen Negative (Negative) SARS-CoV-2 Antigen (Rapid) Positive (NEGATIVE) Blood Gas Set Respiration Rate 16.0 Blood Gas Tidal Volume 500.0 Hepatitis A IgM Antibody Negative Hepatitis B Surface Antigen Negative (Negative) Hepatitis B Core IgM Antibody Negative (Negative) Hepatitis C Antibody Negative (Negative) HIV (1&2) Antibody Negative (Negative) Test 03/15/24 05:10 03/14/24 10:36 03/14/24 04:54 03/14/24 03:36 Prothrombin Time 12.6 sec (9.3-11.8) Prothrombin Time INR 1.21 (0.9-1.15) Activated Partial Thromboplast Time 31.9 SEC (24.5-34.5) Acetaminophen Level < 2.0 UG/ML (10.0-20.0) Lactic Acid Level 1.2 mmol/L (0.4-2.0) Creatine Kinase 252 U/L (46-171) Vitamin B12 Level 333 pg/mL (211-911) Vitamin D 25-Hydroxy 20.5 ng/mL (30.0-100) Folic Acid 13.28 ng/mL (>5.38) Thyroid Stimulating Hormone (TSH) 0.37 uIU/mL (0.55-4.78) Plasma/Serum Blood Alcohol < 3.0 mg/dL (<10) Test 03/14/24 03:03 03/14/24 02:00 Blood Gas Spontaneous Rate 16 Urine Color Light-yellow (Yellow) Urine Clarity Clear (Clear) Urine pH 6.5 (5.0-9.0) Urine Specific [place] 1.019 (1.001-1.035) Urine Protein 1+ (Negative) Urine Ketones Negative (Negative) Urine Blood Negative /uL (Negative) Urine Nitrite Negative (Negative) Urine Bilirubin Negative (Negative) Urine Urobilinogen Normal mg/dL (Negative) Urine Leukocyte Esterase Negative /uL (Negative) Urine RBC 1 /hpf (0 - 3) Urine WBC 2 /hpf (0 - 3) Urine Squamous Epithelial Cells Few /hpf (<5) Urine Bacteria None seen /hpf (None Seen) Urine Mucus Few (None Seen) Urine Glucose 2+ mg/dL (Normal) Urine Opiates Screen Neg (NEGATIVE) Urine Fentanyl Screen Pos (NEGATIVE) Urine Barbiturates Screen Neg (NEGATIVE) Urine Phencyclidine Screen Neg (NEGATIVE) Urine Amphetamines Screen Neg (NEGATIVE) Urine Benzodiazepines Screen Pos (NEGATIVE) Urine Cocaine Screen Pos (NEGATIVE) Urine Cannabinoids Screen Pos (NEGATIVE) Other Laboratory Tests 03/19/24 05:06 Brief Hx & Hospital Course: This is an 28 years old male with past medical history hypertension came to emergency department because altered mental status and decreased responsiveness. On the scene the patient was unresponsive blood glucoses 263. He was given Narcan by law enforcement and another 4 mg by EMS. The patient woke up in the ambulance and improve his mental status. The patient was found to have methamphetamine, fentanyl, benzodiazepine, cocaine, and marijuana. While in the ER the patient alert oriented x4. The patient had eat lunch and drink fluid. So ER physician her his mother to come and pick him up and was discharge him home. The patient stated that he needs to go to the restroom. While in the restroom his stay for long time and was found to noddling off while speaking with RN. This time patient was given multiple Narcan without respond. The patient was subsequently intubated. A small empty package with whitish powder and residue was found in the patient's pocket. His saturation oxygen 60% on room air. The patient was admitted to ICU and subsequently was extubated. The patient also was found to have COVID-19 positive. The patient also suspect to have aspirate pneumonia and was put on IV antibiotic with Rocephin and Zithromax. The patient saturation oxygen was normal after intubation. The patient ambulate. The patient is alert oriented x4. I am going to discharge him home today. Advised him to follow up with primary care physician 1-2 weeks. Advised the patient to stop using drugs especially mixed multiple drugs which can be dangerous in can kill him. Patient verbally understand. Counseled about drug abuse more than 15 minutes. Activity as tolerated. Diet regular diet recommend abstinence from drugs. Physical exam: HEENT: Normocephalic atraumatic pupils equal react to light and accommodation. Extraocular muscles intact, conjunctiva pink, oropharynx moist, no thrush, no exudate. Lymphatic: No lymphadenopathy Cardiovascular exam: S1, S2 was heard. No murmurs, rubs, gallops Lung: Clear on auscultation bilaterally, no wheeze, rale, rhonchi. GI: Abdominal soft, nondistended, nontenderness, positive bowel sounds. Extremity: No crepitus, cyanosis, edema. Pedal pulses present bilateral. Full range of motion. Skin: Normal turgor, no rash. Psych: Alert, oriented x3. Neurology: No focal deficits, cranial nerve II to XII grossly intact. This medical document was created using an electronic medical record system with Assignment Editor direct computerized dictation system. Although this document has been carefully reviewed, there may still be some phonetic and typographical errors. These areas are purely typographical due to imperfections of the software programs, and do not reflect any compromise in the patient's medical care. Condition at Discharge: Stable Final Diagnosis/Problems List # ?Acute hypoxic/hypercarbic respiratory failure # acute respiratory failure due to drug overdose # ? aspiration pneumonia # acute respiratory acidosis with compensation # COVID 19 Discharge Disposition: Home Discharge Instruct/Medications Activity: No Restrictions, As Tolerated Activity comment: Follow Up/Referral: PCP 1-2 weeks Discharge Statement: "Patient was advised to return to the ER or call 911 if any headaches, dizziness, shortness of breath, chest pain, abdominal pain, bleeding, fevers, or worsening of medical condition. Patient was counseled about treatment plan, medications, possible side effects, patientverbalized understanding. All questions were answered to the best of my ability. This discharge took greater then 30 minutes in planning, reviewing documentation, counseling the patient, and discussing with other team members." ASSESSMENT ASSESSMENT Assessment Date of Service: Mar 19, 2024 Billing Provider: JOLIE HUFFMAN MD Common Visit Codes: 27190-XWU/OBS DISCH DAY >30min JOLIE HUFFMAN MD Mar 19, 2024 15:12
[2024-03-19] MEDS ORDERED: AZIT-185 PO (15:34)
== END 2024-03-19 17:55 | disposition home or self-care (01) | DRG 812 ==
LOC: ER 19:46 → EDBD 19:46 → EEVIPCON 03-14 03:12 → TELE 03-14 03:12 → TELE-CENTR 03-18 16:42
PROVIDERS: ADMIT Internal Medicine; ATTEND Internal Medicine
PROC: 5A1945Z Respiratory Ventilation, 24-96 Consecutive Hours (ICD-10-PCS; principal; 2024-03-14)
PROC: 0BH17EZ Insertion of Endotracheal Airway into Trachea, Via Natural or Artificial Opening (ICD-10-PCS; 2024-03-14)
PROC: 06HY33Z Insertion of Infusion Device into Lower Vein, Percutaneous Approach (ICD-10-PCS; 2024-03-14)
DX: T40.2X1A Poisoning by other opioids, accidental (unintentional), initial encounter (principal); A41.89 Other specified sepsis; J96.01 Acute respiratory failure with hypoxia; R65.21 Severe sepsis with septic shock; J69.0 Pneumonitis due to inhalation of food and vomit; G92.8 Other toxic encephalopathy; U07.1 COVID-19; I10 Essential (primary) hypertension; J96.02 Acute respiratory failure with hypercapnia; M62.82 Rhabdomyolysis; F19.10 Other psychoactive substance abuse, uncomplicated; E87.4 Mixed disorder of acid-base balance; E55.9 Vitamin D deficiency, unspecified; Z88.0 Allergy status to penicillin; Z90.81 Acquired absence of spleen; Y92.89 Other specified places as the place of occurrence of the external cause
CPT/HCPCS: 36415; 36600; 71045; 80048; 80053; 80074; 80202; 80307; 80320; 80329; 81001; 82306; 82550; 82607; 82746; 82805; 83605; 83735; 84443; 85007; 85025; 85027; 85610; 85730; 86703; 87040; 87070; 87081; 87086; 87205; 87426; 87804; 93005; 93306; 94002; 94003; 97163; G0378; J2185; J2470; J2704; J3480; J7060

== ENCOUNTER 2024-05-06 01:05 | Emergency (ER) | payer MEDICAID ==
[~2024-05-06] VITALS: Ht 182.9 cm; Wt 75.5 kg
[~2024-05-06 01:05] MED LIST changes: +AZIT-185 PO
--- NOTE | 2024-05-06 01:32 | ED.PDOC ---
History of Present Illness HPI Comments 28 year old male, came to ER due to overdose. Patient has chronic back pain, usually takes fentanyl to help ease the pain. At about 10 pm, patient took 1 pill of fentanyl and appeared to have passed out, to be awaken by family members. Patient was advised by family to go to the ER to be evaluated Chief Complaint: Overdose Time Seen by MD: 01:32 Primary Care Provider: DENIES Reviewed Notes: Nurses Notes Allergies: Coded Allergies: Penicillins (Verified Allergy, Unknown, 03/14/24) Home Meds Active Scripts Azithromycin (ZITHROMAX TABLET) 250 Mg Tb, 250 MG PO DAILY, #6 TAB take 2 tab the first day, then 1 tab per day until finish Prov:JOLIE HUFFMAN MD 03/19/24 Pantoprazole Sodium Sesquihydr (Protonix) 40 Mg Tab, 40 MG PO DAILY, #30 TAB Prov:JUDY ARIZA MD 11/15/23 Ondansetron Odt 4MG Tab (ZOFRAN PO) 4 Mg Tb, 4 MG PO Q8HP PRN for 5 Days, #15 TAB ODT TAB-DISSOLVE IN MOUTH, THEN SWALLOW Prov:JUDY ARIZA MD 11/15/23 Information Source: Patient Mode of Arrival: Ambulatory Severity: Moderate Timing: Hours Duration: Since onset Prehospital treatment: None Past Medical History Past Medical History (Other): Chronic Back pain Surgical History (Other): , back surgery, exploratory laparotomy Family History Family History: Reviewed,noncontributory to illness, Family hx of Cancer Social History Smoker: Non-Smoker Alcohol: Occasionally Drugs: Cocaine, Marijuana, Other (fentanyl) Lives In: Home Constitutional: denies: chills, diaphoresis, fatigue, fever, malaise, sweats, weakness, others EENTM: denies: blurred vision, double vision, ear bleeding, ear discharge, ear drainage, ear pain, ear ringing, eye pain, eye redness, hearing loss, mouth pain, mouth swelling, nasal discharge, nose bleeding, nose congestion, nose pain, photophobia, tearing, throat pain, throat swelling, voice changes, others Respiratory: denies: cough, hemoptysis, orthopnea, SOB at rest, shortness of breath, SOB with excertion, stridor, wheezing, others Cardiovascular: denies: chest pain, dizzy spells, diaphoresis, Dyspnea on exertion, edema, irregular heart beat, left arm pain, lightheadedness, palpitations, PND, syncope, others Gastrointestinal: denies: abdomen distended, abdominal pain, blood streaked bowels, constipated, diarrhea, dysphagia, difficulty swallowing, hematemesis, melena, nausea, poor appetite, poor fluid intake, rectal bleeding, rectal pain, vomiting, others Genitourinary: denies: burning, dysuria, flank pain, frequency, hematuria, incontinence, penile discharge, penile sore, pain, testicle pain, testicle swelling, urgency, others Neurological: denies: dizziness, fainting, headache, left sided numbness, left sided weakness, numbness, paresthesia, pre-existing deficit, right sided numbness, right sided weakness, seizure, speech problems, tingling, tremors, weakness, others Musculoskeletal: reports: back pain; denies: gout, joint pain, joint swelling, muscle pain, muscle stiffness, neck pain, others Integumetry: denies: bruises, change in color, change in hair/nails, dryness, laceration, lesions, lumps, rash, wounds, others Allergic/Immunocompromised: denies: Difficulty Healing, Frequent Infections, Hives, Itching, others Hematologic/Lymphatic: denies: anemia, blood clots, easy bleeding, easy bruising, swollen glands, others Endocrine: denies: excessive hunger, excessive sweating, excessive thirst, excessive urination, flushing, intolerance to cold, intolerance to heat, unexplained weight gain, unexplained weight loss, others Psychiatric: denies: anxiety, bipolar disorder, depression, hopeless, panic disorder, schizophrenia, sleepless, suicidal, others Physical Exam General Appearance: No Apparent Distress, Normal HEENT: Normal ENT Inspection, Pharynx Normal, TMs Normal Neck: Full Range of Motion, Non-Tender, Normal, Normal Inspection Respiratory: Chest Non-Tender, Lungs Clear, No Accessory Muscle Use, No Respiratory Distress, Normal Breath Sounds Cardiovascular: No Edema, No JVD, No Murmur, No Gallop, Normal Peripheral Pulses, Regular Rate/Rhythm Breast Exam: Deferred Gastrointestinal: No Organomegaly, Non Tender, No Pulsatile Mass, Normal Bowel Sounds, Soft Genitalia: Deferred Pelvic: Deferred Rectal: Deferred Extremities: No calf tenderness, Normal capillary refill, Normal inspection, Normal range of motion, Non-tender, No pedal edema Musculoskeletal : Apperance: Normal Neurologic: Alert, deicer repairer electric II-XII nml as Tested, No Motor Deficits, Normal Affect, Normal Mood, No Sensory Deficits Cerebellar Function: Normal Reflexes: Normal Skin: Dry, Normal Color, Warm Lymphatic: No Adenopathy Was a procedure done? Was a procedure done?: No Differential Dx Considerations may include: Chronic back pain, fentanyl overdose X-Ray, Labs, Meds, VS Vital Signs Date Time Temp Pulse Resp B/P (MAP) Pulse Ox O2 Delivery O2 Flow Rate FiO2 05/06/24 02:13 116 20 130/68 (88) 100 05/06/24 01:33 99.3 112 14 149/91 (110) 96 Current Medications Medications (Trade) Dose Ordered Sig/Karlee Route Start Time Stop Time Status Last Admin Sodium Chloride 1,000 ml @ 1,000 mls/hr Q1H ONCE IV 05/06/24 01:45 05/06/24 02:44 05/06/24 02:21 Ondansetron HCl (Zofran) 4 mg ONCE ONCE IV 05/06/24 01:45 05/06/24 01:46 DC 05/06/24 02:21 X-Ray, Labs, Meds, VS Comment Imaging: X-rays and CT scans were reviewed and interpreted by this provider, imaging shows no fractures and no pathological disease. Pending radiology review. Laboratory: Labs reviewed and interpreted by this provider. No significant abnormalities noted. Patient has prior medical visits reviewed. Med reconciliation performed Vital signs reviewed Time of 1ST Reevaluation: 01:27 Reevaluation 1ST: Improved Patient Education/Counseling: Diagnosis, Treatment, Need For Follow Up (Patient advised to follow-up in the emergency room in the next 24 to 48 hours if symptoms do not improve. Advised follow-up with PCP in the next 3 to 5 days. Patient verbalized understanding. ) Family Education/Counseling: No Family Present Departure 1 Departure Time of Disposition: 02:29 Impression: Primary Impression: Accidental fentanyl overdose Qualified Codes: T40.411A - Poisoning by fentanyl or fentanyl analogs, accidental (unintentional), initial encounter Disposition: HOME / SELF CARE / HOMELESS Condition: Fair Discharged With: Self Critical Care Note Critical Care Time?: No Stability Stability form required: No Heart Score Heart Score: Heart Score Response (Comments) Value History N/A 0 EKG N/A 0 Age N/A 0 Risk Factors N/A 0 Troponin N/A 0 Total 0 I personally scribed for SAY RODRIGUEZ ([facility] on 05/06/24 at 01:32. Electronically submitted by Mitchel Webber ([facility]). SAY RODRIGUEZ May 06, 2024 01:32
[2024-05-06] MEDS: ONDANSETRON HCL 4 MG/2 ML VIAL IV ONE (02:21)
[2024-05-06] MEDS: SODIUM CHLORIDE 0.9% 1,000 ML IV ONE (02:21)
[2024-05-06 03:35] VITALS: BP 132/82; PULSE 96; RESP 16; TEMP 98.3; O2SAT 95
== END 2024-05-06 03:42 | disposition home or self-care (01) ==
LOC: ER 01:05
DX: T40.411A Poisoning by fentanyl or fentanyl analogs, accidental (unintentional), initial encounter (principal); G89.29 Other chronic pain; M54.9 Dorsalgia, unspecified; F15.90 Other stimulant use, unspecified, uncomplicated; F12.10 Cannabis abuse, uncomplicated; Z98.890 Other specified postprocedural states; Z88.0 Allergy status to penicillin; Z79.899 Other long term (current) drug therapy; Y92.89 Other specified places as the place of occurrence of the external cause
CPT/HCPCS: 96361; 96374; 99283; J2405; J7030

== ENCOUNTER 2024-08-18 22:39 | Emergency (ER) | payer MEDICAID ==
[~2024-08-18] VITALS: Ht 182.9 cm; Wt 77.2 kg
[2024-08-18 23:35] LABS: Basophils # (auto) 0.1 10 ^3/uL (0-0.2); Hemoglobin 12.6 g/dL (13.5-17.5); Monocytes # (auto) 1.1 10 ^3/uL (0-1.3); Red Cell Distribution Width 14.2 % (11.8-14.3)
[2024-08-18 23:36] LABS: Basophils % (auto) 1.1 % (0.0-2.0); Eosinophils # (auto) 0.3 10 ^3/uL (0-0.8); Eosinophils % (auto) 2.4 % (0.0-7.0); Hematocrit 37.6 % (41.0-53.0); Lymphocytes # (auto) 2.8 10 ^3/uL (0.4-5.4); Lymphocytes % (auto) 26.4 % (10.0-50.0); Mean Corpuscular Hemoglobin 30.6 pg (28.0-32.0); Mean Corpuscular Hgb Conc. 33.5 g/dL (32.0-36.0); Mean Corpuscular Volume 91.5 fL (80.0-100.0); Monocytes % (auto) 10.2 % (0.0-12.0); Neutrophils # (auto) 6.4 10 ^3/uL (1.6-8.6); Neutrophils % (auto) 59.9 % (37.0-80.0); Nucleated Red Blood Cells % 0.1 %; Platelet Count (auto) 564 10^3/uL (140-450); Red Blood Cells 4.11 10^6/uL (4.5-5.90); White Blood Cell 10.6 10^3/uL (4.4-10.8)
--- NOTE | 2024-08-18 23:36 | ED.PDOC ---
Psychiatric HPI Comments 28-year-old male who came to ER for overdose. Patient has history of anxiety, depression and polysubstance abuse. Has been seen multiple times at the ER for overdose. Patient states he took Xanax 2 mg this noon in another 2 mg Xanax at around 9:00 p.m.. He states he also smoked marijuana. Patient went to sleep, however family members found him unarousable so he was given Narcan intranasal which woke him up and paramedics were called. Patient fully awake at this time and states he suspects that someone laced his Xanax with Fentanyl. He denies feeling suicidal/homicidal and denies any auditory or visual hallucinations.. He denies taking any other drugs or alcohol. Chief Complaint: Overdose Time Seen by MD: 23:34 Primary Care Provider: LAINEY Reviewed Notes: Surveillance Agent Notes Information Source: Patient Mode of Arrival: EMS Severity: Unable to Care for Self, Unable to Control Self Severity of Pain: Moderate Severity of Mental Status: Moderate Severity of Symptoms: Moderate Timing: Hours Duration: Minutes Presents with: Depression, Anxiety Ingestion: Intentional, Multiple, Ingestion Observed, Drug(s) Ingested (Xanax 2mg) Circumstance: Medical Clearance Current substance abuse: Benzodiazepines, Cocaine Stressors: Relationships History of: Depression, Anxiety, Substance Abuse Associated signs and symptoms: Depression, Hopeless, Anxiety, Confusion Past Medical History PAST MEDICAL HISTORY: Anxiety, Depression Past Medical History (Other): Back pain, polysubstance abuse Surgical History (Other): Splenectomy Family History Family History: Reviewed,noncontributory to illness, Family hx of Cancer Social History Smoker: Non-Smoker Alcohol: Occasionally Drugs: Cocaine, Marijuana, Other (Fentanyl) Lives In: Home Constitutional: denies: chills, diaphoresis, fatigue, fever, malaise, sweats, weakness, others EENTM: denies: blurred vision, double vision, ear bleeding, ear discharge, ear drainage, ear pain, ear ringing, eye pain, eye redness, hearing loss, mouth pain, mouth swelling, nasal discharge, nose bleeding, nose congestion, nose pain, photophobia, tearing, throat pain, throat swelling, voice changes, others Respiratory: denies: cough, hemoptysis, orthopnea, SOB at rest, shortness of breath, SOB with excertion, stridor, wheezing, others Cardiovascular: denies: chest pain, dizzy spells, diaphoresis, Dyspnea on exertion, edema, irregular heart beat, left arm pain, lightheadedness, palpita tions, PND, syncope, others Gastrointestinal: denies: abdomen distended, abdominal pain, blood streaked luci wels, constipated, diarrhea, dysphagia, difficulty swallowing, hematemesis, melena, nausea, poor appetite, poor fluid intake, rectal bleeding, rectal pain, vomiting, others Genitourinary: denies: burning, dysuria, flank pain, frequency, hematuria, incontinence, penile discharge, penile sore, pain, testicle pain, testicle swelling, urgency, others Neurological: denies: dizziness, fainting, headache, left sided numbness, left sided weakness, numbness, paresthesia, pre-existing deficit, right sided numbness, right sided weakness, seizure, speech problems, tingling, tremors, weakness, others Musculoskeletal: denies: back pain, gout, joint pain, joint swelling, muscle pain, muscle stiffness, neck pain, others Integumetry: denies: bruises, change in color, change in hair/nails, dryness, laceration, lesions, lumps, rash, wounds, others Allergic/Immunocompromised: denies: Difficulty Healing, Frequent Infections, Hives, Itching, others Hematologic/Lymphatic: denies: anemia, blood clots, easy bleeding, easy bruisin g, swollen glands, others Endocrine: denies: excessive hunger, excessive sweating, excessive thirst, excessive urination, flushing, intolerance to cold, intolerance to heat, unexplained weight gain, unexplained weight loss, others Psychiatric: reports: anxiety, depression; denies: bipolar disorder, hopeless, panic disorder, schizophrenia, sleepless, suicidal, others All Other Systems: Reviewed and Negative Physical Exam General Appearance: No Apparent Distress HEENT: PERRL/EOMI Neck: Full Range of Motion, Normal Inspection Respiratory: Lungs Clear, No Accessory Muscle Use, No Respiratory Distress, Normal Breath Sounds Cardiovascular: No Edema, No JVD, Regular Rate/Rhythm Breast Exam: Deferred Gastrointestinal: Non Tender, Soft Genitalia: Deferred Pelvic: Deferred Rectal: Deferred Extremities: Normal inspection, Normal range of motion, Non-tender, No pedal edema Neurologic: Alert (Oriented x4), Normal Affect, Normal Mood, Other (Ambulatory) Cerebellar Function: NOT DONE Reflexes: NOT DONE Skin: Dry, Normal Color, Warm Lymphatic: NOT DONE EKG EKG : Comments Sinus tach, rate 105, normal intervals, normal axis, normal QRS, no ST/T change. Was a procedure done? Was a procedure done?: No Psych Differential Dx OD Differential Dx: Anxiety, Depression, Drug Overdose, Accidental, Suicidal Gesture Suicidal Differential Dx: Alcohol Abuse X-Ray, Labs, Meds, VS Vital Signs Date Time Temp Pulse Resp B/P (MAP) Pulse Ox O2 Delivery O2 Flow Rate FiO2 08/19/24 01:03 Room Air* 0 21 08/19/24 01:02 97.9 73 18 143/84 (103) 96 97.9 08/18/24 22:51 97.2 105 12 143/77 (99) 93 97.2 08/18/24 22:47 105 Lab Test 08/19/24 02:30 08/18/24 23:20 Range/Units Urine Color Yellow Yellow Urine Clarity Clear Clear Urine pH 7.0 5.0-9.0 Urine Specific Posey 1.030 1.001-1.035 Urine Protein Trace H Negative Urine Ketones Negative Negative Urine Blood Negative Negative /uL Urine Nitrite Negative Negative Urine Bilirubin Negative Negative Urine Urobilinogen Normal Negative mg/dL Urine Leukocyte Esterase Negative Negative /uL Urine RBC <1 0 - 3 /hpf Urine Microscopic WBC 8 H 0-3 /HPF Urine Squamous Epithelial Cells Few <5 /hpf Urine Bacteria None Seen /hpf Urine Mucus Few None Seen Urine Glucose Normal Normal mg/dL Urine Opiates Screen Neg NEGATIVE Urine Fentanyl Screen Pos NEGATIVE Urine Barbiturates Screen Neg NEGATIVE Urine Phencyclidine Screen Neg NEGATIVE Urine Amphetamines Screen Neg NEGATIVE Urine Benzodiazepines Screen Pos NEGATIVE Urine Cocaine Screen Neg NEGATIVE Urine Cannabinoids Screen Pos NEGATIVE White Blood Count 10.6 4.4-10.8 10^3/uL Red Blood Count 4.11 L 4.5-5.90 10^6/uL Hemoglobin 12.6 L 13.5-17.5 g/dL Hematocrit 37.6 L 41.0-53.0 % Mean Corpuscular Volume 91.5 80.0-100.0 fL Mean Corpuscular Hemoglobin 30.6 28.0-32.0 pg Mean Corpuscular Hemoglobin Concent 33.5 32.0-36.0 g/dL Red Cell Distribution Width 14.2 11.8-14.3 % Platelet Count 564 H 140-450 10^3/uL Mean Platelet Volume 6.4 L 6.9-10.8 fL Neutrophils (%) (Auto) 59.9 37.0-80.0 % Lymphocytes (%) (Auto) 26.4 10.0-50.0 % Monocytes (%) (Auto) 10.2 0.0-12.0 % Eosinophils (%) (Auto) 2.4 0.0-7.0 % Basophils (%) (Auto) 1.1 0.0-2.0 % Neutrophils # (Auto) 6.4 1.6-8.6 10 ^3/uL Lymphocytes # (Auto) 2.8 0.4-5.4 10 ^3/uL Monocytes # (Auto) 1.1 0-1.3 10 ^3/uL Eosinophils # (Auto) 0.3 0-0.8 10 ^3/uL Basophils # (Auto) 0.1 0-0.2 10 ^3/uL Nucleated Red Blood Cells 0.1 % Sodium Level 142 136-145 mmol/L Potassium Level 4.0 3.5-5.1 mmol/L Chloride Level 103 98-107 mmol/L Carbon Dioxide Level 32 H 20-31 mmol/L Anion Gap 7 5-15 Blood Urea Nitrogen 14 9-23 mg/dL Creatinine 1.15 0.700-1.30 mg/dL Glomerular Filtration Rate Calc 89 >90 mL/min BUN/Creatinine Ratio 12.2 10.0-20.0 Serum Glucose 101 74-106 mg/dL Calcium Level 10.1 8.7-10.4 mg/dL Total Bilirubin 0.4 0.2-1.0 mg/dL Aspartate Amino Transferase (AST) 34 <34 U/L Alanine Aminotransferase (ALT) 24 7-40 U/L Alkaline Phosphatase 77 46-116 U/L Total Protein 7.7 5.7-8.2 g/dL Albumin 4.8 3.2-4.8 g/dL Salicylates Level < 3.0 -30 mg/dL Acetaminophen Level < 2.0 L 10.0-20.0 UG/ML Plasma/Serum Blood Alcohol < 3.0 <10 mg/dL Current Medications Medications (Trade) Dose Ordered Sig/Karlee Route Start Time Stop Time Status Last Admin Sodium Chloride 2,000 ml @ 1,000 mls/hr Q2H ONCE IV 08/18/24 23:15 08/19/24 01:14 DC 08/18/24 23:51 X-Ray, Labs, Meds, VS Comment 28-year-old male with a history of anxiety, depression and polysubstance abuse brought in by EMS from home after family found the patient unresponsive. Patient was given Narcan by family and is now awake and alert. He denies SI/HI, auditory or visual hallucinations. He states he was taking the Ativan recreationally and to treat his anxiety. Initial vitals remarkable for heart rate 105, BP 143/77 Exam unremarkable Rhythm strip independently interpreted by me: Sinus tach, rate 105, no ectopy. CBC, metabolic panel, Tylenol and salicylate levels and alcohol level unremarkab le Urine drug screen positive for cannabinoids, fentanyl and benzos. UA unremarkable. Patient treated with the following in the ED: 1 L 0.9 normal saline IV bolus On re-evaluation after an observation period of approximately 4 hours, the pa tient was alert, neurologically intact and asymptomatic. Vitals were stable. Patient appears stable for discharge with close outpatient follow-up with his primary physician. Time of 1ST Reevaluation: 23:29 Reevaluation 1ST: Unchanged Patient Education/Counseling: Diagnosis, Treatment Family Education/Counseling: No Family Present Departure 1 Departure Time of Disposition: 03:15 Impression: Primary Impression: Accidental overdose Qualified Codes: T50.901A - Poisoning by unspecified drugs, medicaments and biological substances, accidental (unintentional), initial encounter Disposition: HOME / SELF CARE / HOMELESS Condition: Stable Additional Instructions: Your blood tests were unremarkable. Your urine drug screen was positive for benzodiazepines, fentanyl and cannabinoids. Follow-up with your primary doctor in 1-2 days. Discharged With: Self Critical Care Note Critical Care Time?: No Stability Stability form required: No Heart Score Heart Score: Heart Score Response (Comments) Value History N/A 0 EKG N/A 0 Age N/A 0 Risk Factors N/A 0 Troponin N/A 0 Total 0 I personally scribed for GARCIA ALMANZA MD ([email or web address]) on 08/18/24 at 23:36. Electronically submitted by Mitchel Webber ([email or web address]). GARCIA ALMANZA MD Aug 18, 2024 23:36
[2024-08-18] MEDS: SODIUM CHLORIDE 0.9% 2,000 ML IV ONE (23:51)
[2024-08-19 00:01] LABS: Alanine Aminotransferase 24 U/L (7-40); Alkaline Phosphatase 77 U/L (46-116); Anion Gap 7 (5-15); BUN/Creatinine Ratio 12.2 (10.0-20.0); Blood Urea Nitrogen 14 mg/dL (9-23); Calcium 10.1 mg/dL (8.7-10.4); Chloride 103 mmol/L (98-107); Glucose 101 mg/dL (74-106); Sodium 142 mmol/L (136-145); Total Protein 7.7 g/dL (5.7-8.2)
[2024-08-19 00:02] LABS: Bilirubin, Total 0.4 mg/dL (0.2-1.0)
[2024-08-19 00:20] LABS: Acetaminophen < 2.0 UG/ML (10.0-20.0); Salicylate < 3.0 mg/dL (-30)
[2024-08-19 00:21] LABS: Albumin 4.8 g/dL (3.2-4.8); Aspartate Aminotransferase 34 U/L (<34); Blood Alcohol < 3.0 mg/dL (<10); Carbon Dioxide 32 mmol/L (20-31)
[2024-08-19 03:30] LABS: Amphetamine Screen, Urine Neg (NEGATIVE); Barbiturate Scree,Urine Neg (NEGATIVE); Benzodiazephine Screen, Urine Pos (NEGATIVE); Cannabinoid Screen, Urine Pos (NEGATIVE); Cocaine Screen, Urine Neg (NEGATIVE); Opiate Scree,Urine Neg (NEGATIVE); Phencyclidine Screen, Urine Neg (NEGATIVE); Urine Blood Negative /uL (Negative); Urine Clarity Clear (Clear); Urine Color Yellow (Yellow); Urine Mucus FEW (None Seen); Urine Protein, UAD TRACE (Negative); Urine Squamous Epithelial Cell FEW /hpf (<5); Urine Urobilinogen Normal (Negative); Urine WBC 8 /HPF (0-3)
[2024-08-19 03:53] VITALS: BP 97/72; PULSE 80; RESP 18; TEMP 98; O2SAT 100
--- NOTE | 2024-08-19 13:44 | ECG ---
[facility] Test Date: 2024-08-18 Test Time: 22:47:12 Pat Name: MISSY MYERS Department: ED Room: Gender: M Healthcare Facility Administrator: hiral : 1995 Requested By: GARCIA ALEGRIA Order Number: [id number] Reading MD: Garth Richards Measurements Intervals Conception Rate: 105 P: 34 [place]: 169 QRS: 16 QRSD: 96 T: 17 QT: 326 QTc: 431 Interpretive Statements Sinus tachycardia Electronically Signed On 08-20-2024 20:11:08 PDT by Garth Richards Please click the below link to view image of tracing.
== END 2024-08-19 04:15 | disposition home or self-care (01) ==
LOC: ER 22:39 → EDBD 22:39 → ER 08-19 04:15
DX: T42.4X1A Poisoning by benzodiazepines, accidental (unintentional), initial encounter (principal); F41.9 Anxiety disorder, unspecified; F32.A Depression, unspecified; F12.90 Cannabis use, unspecified, uncomplicated; F15.90 Other stimulant use, unspecified, uncomplicated; Z98.890 Other specified postprocedural states; I10 Essential (primary) hypertension; R41.0 Disorientation, unspecified; Y92.89 Other specified places as the place of occurrence of the external cause
CPT/HCPCS: 36415; 80053; 80307; 80320; 80329; 81001; 85025; 93005; 96360; 96361; 99284; J7030

== ENCOUNTER 2024-11-29 10:48 | Emergency (ER) | payer MEDICAID ==
[~2024-11-29] VITALS: Ht 182.9 cm; Wt 86.4 kg
[2024-11-29] MEDS ORDERED: METH4PAK PO (11:53)
[2024-11-29] MEDS ORDERED: IBUP-1455 PO (11:53)
[2024-11-29] MEDS ORDERED: AZIT-43 PO (11:53)
--- NOTE | 2024-11-29 11:53 | ED.PDOC ---
Eye-HPI HPI Comments 28-YEAR-OLD MALE PRESENTS TO THE ER WITH A PRIOR SURGICAL HISTORY OF A SPL ENECTOMY IN THE CHIEF COMPLAINT OF FLU-LIKE SYMPTOMS. PATIENT REPORTS THAT HE WAS SICK TO AND A HALF WEEKS AGO AND WAS TAKEN [id number] MEDICATIONS WHICH WORKED AND ALL OF HIS PRIOR SYMPTOMS SUBSIDED BUT CAME BACK LAST NIGHT. PATIENT HAS MULTIPLE EPISODES OF EMESIS LAST NIGHT ASSOCIATED WITH A COUGH, YELLOW AND GREEN PHLEGM. DENIES ANY OTHER SYMPTOMS AT THIS TIME. COVID-19 EXPOSURE: NONE THAT THEY KNOW OF DENIES FEVERS CHILLS NIGHT SWEATS UNINTENTIONAL WEIGHT LOSS DENIES PERSISTENT CHEST PAIN, SHORTNESS OF BREATH, LEG SWELLING DENIES HISTORY OF ASTHMA NOR ANY BREATHING CONDITIONS DENIES HISTORY OF PNEUMONIA DENIES RECENT INTERNATIONAL TRAVEL Chief Complaint: Flu like Time Seen by MD: 11:30 Primary Care Provider: DENIES Reviewed Notes: Nurses Notes, Medications, Allergies Allergies: Coded Allergies: Penicillins (Verified Allergy, Unknown, 03/14/24) Home Meds Active Scripts Ibuprofen Micronized (Ibuprofen) 800 Mg Tab, 800 MG PO Q8HP PRN for 10 Days, #30 TAB 0 Refills Prov:BEAR TALAMANTES NP 11/29/24 Methylprednisolone (Medrol Dosepak) 4 Mg Travis, 4 MG PO UD, #21 TAB 0 Refills UAD Prov:BEAR TALAMANTES NP 11/29/24 Azithromycin (Azithromycin) 250 Mg Tab, 250 MG PO DAILY MDD 500 for 5 Days, #6 TAB 0 Refills 2 TABLETS ORALLY ON DAY ONE, THEN 1 TABLET ORALLY DAILY FOR 4 DAYS Prov:BEAR TALAMANTES NP 11/29/24 Azithromycin (ZITHROMAX TABLET) 250 Mg Tb, 250 MG PO DAILY, #6 TAB take 2 tab the first day, then 1 tab per day until finish Prov:JOLIE HUFFMAN MD 03/19/24 Pantoprazole Sodium Sesquihydr (Protonix) 40 Mg Tab, 40 MG PO DAILY, #30 TAB Prov:JUDY ARIZA MD 11/15/23 Ondansetron Odt 4MG Tab (ZOFRAN PO) 4 Mg Tb, 4 MG PO Q8HP PRN for 5 Days, #15 TAB ODT TAB-DISSOLVE IN MOUTH, THEN SWALLOW Prov:JUDY ARIZA MD 11/15/23 Information Source: Patient Mode of Arrival: Ambulatory Timing: Weeks Duration: Since onset Prehospital treatment: None Quality: Yellow, Green Eye Location: Lower Lids: Normal Conjunctiva: Normal Cornea: Normal Pupils: Normal EOM: Normal Fundus: Normal Slit lamp exam: Normal Anterior chamber: Normal Mouth: Normal Nose: Normal Sinuses: Normal Oropharynx: Normal Onset: Spontaneous Throat Exposed to: None History of: None Past Medical History PAST MEDICAL HISTORY: Anxiety, Depression Surgical History: Denies all surgeries Family History Family History: Reviewed,noncontributory to illness, Unknown Social History Smoker: Non-Smoker Alcohol: Occasionally Drugs: Cocaine, Marijuana, Other Lives In: Home Constitutional: denies: chills, diaphoresis, fatigue, fever, malaise, sweats, weakness, others EENTM: denies: blurred vision, double vision, ear bleeding, ear discharge, ear drainage, ear pain, ear ringing, eye pain, eye redness, hearing loss, mouth pain, mouth swelling, nasal discharge, nose bleeding, nose congestion, nose pain, photophobia, tearing, throat pain, throat swelling, voice changes, others Respiratory: reports: cough, others (GREEN-YELLOW PHLEGM); denies: hemoptysis, orthopnea, SOB at rest, shortness of breath, SOB with excertion, stridor, wheezing Cardiovascular: denies: chest pain, dizzy spells, diaphoresis, Dyspnea on exertion, edema, irregular heart beat, left arm pain, lightheadedness, palpitations, PND, syncope, others Gastrointestinal: reports: vomiting; denies: abdomen distended, abdominal pain, blood streaked bowels, constipated, diarrhea, dysphagia, difficulty swallowing, hematemesis, melena, nausea, poor appetite, poor fluid intake, rectal bleeding, rectal pain, others Genitourinary: denies: burning, dysuria, flank pain, frequency, hematuria, incontinence, penile discharge, penile sore, pain, testicle pain, testicle swelling, urgency, others Neurological: denies: dizziness, fainting, headache, left sided numbness, left sided weakness, numbness, paresthesia, pre-existing deficit, right sided numbness, right sided weakness, seizure, speech problems, tingling, tremors, weakness, others Musculoskeletal: denies: back pain, gout, joint pain, joint swelling, muscle pain, muscle stiffness, neck pain, others Integumetry: denies: bruises, change in color, change in hair/nails, dryness, laceration, lesions, lumps, rash, wounds, others Allergic/Immunocompromised: denies: Difficulty Healing, Frequent Infections, Hives, Itching, others Hematologic/Lymphatic: denies: anemia, blood clots, easy bleeding, easy bruising, swollen glands, others Endocrine: denies: excessive hunger, excessive sweating, excessive thirst, excessive urination, flushing, intolerance to cold, intolerance to heat, unexplained weight gain, unexplained weight loss, others Psychiatric: denies: anxiety, bipolar disorder, depression, hopeless, panic disorder, schizophrenia, sleepless, suicidal, others All Other Systems: Reviewed and Negative Physical Exam General Appearance: No Apparent Distress, Normal HEENT: Normal ENT Inspection, Pharynx Normal, TMs Normal Neck: Full Range of Motion, Non-Tender, Normal, Normal Inspection Respiratory: Chest Non-Tender, Lungs Clear, No Accessory Muscle Use, No Respiratory Distress, Normal Breath Sounds Cardiovascular: No Edema, No JVD, No Murmur, No Gallop, Normal Peripheral Pulses, Regular Rate/Rhythm Breast Exam: Deferred Gastrointestinal: No Organomegaly, Non Tender, No Pulsatile Mass, Normal Bowel Sounds, Soft Genitalia: Deferred Pelvic: Deferred Rectal: Deferred Extremities: No calf tenderness, Normal capillary refill, Normal inspection, Normal range of motion, Non-tender, No pedal edema Musculoskeletal : Apperance: Normal Neurologic: Alert, straw hat presser II-XII nml as Tested, No Motor Deficits, Normal Affect, Normal Mood, No Sensory Deficits Cerebellar Function: Normal Reflexes: Normal Skin: Dry, Normal Color, Warm Lymphatic: No Adenopathy Was a procedure done? Was a procedure done?: No EENT DIFF Eye: Other Sore Throat: Viral Pharyngitis, URI, Other X-Ray, Labs, Meds, VS Vital Signs Date Time Temp Pulse Resp B/P (MAP) Pulse Ox O2 Delivery O2 Flow Rate FiO2 11/29/24 11:56 95 16 95 Room Air 11/29/24 11:56 98.5 95 16 135/82 (99) 96 98.5 11/29/24 10:51 98.8 97 18 129/73 94 98.8 X-Ray, Labs, Meds, VS Comment 28-YEAR-OLD MALE PRESENTS TO THE ER WITH A PRIOR SURGICAL HISTORY OF A SPLENECTOMY IN THE CHIEF COMPLAINT OF FLU-LIKE SYMPTOMS. PATIENT ARRIVES ALERT AND ORIENTED, ABC'S INTACT, AFEBRILE, VITAL SIGNS STABLE, SATURATING WELL IN ROOM AIR Exam/test findings consistent with strep throat infection. The patient agreed to empiric treatment. Course of antibiotics was prescribed patient allergic to penicillin therefore the Z-Travis was prescribed Encouraged fluid intake Acetaminophen to reduce pain/fever NSAIDs to reduce pain/fever Viscous lidocaine as needed Nonpharmacological recommendations given Warm salt water gargles Throat lozenges Humidified air Also advised to replace toothbrush after 3 days of antibiotic use, return to school after 24 hours of treatment (no longer contagious). Return precautions given Worsening pain Fevers past 48 hours after antibiotics Any neck pain, headache, vision issues, or other concerns ADDITIONAL MDM REVIEW OF EXTERNAL, NON-ED RECORDS: EXTERNAL RECORDS REVIEWED. DISCUSSION WITH INDEPENDENT HISTORIAN (EMS, FAMILY) HISTORY OBTAINED FROM THE PATIENT/PARENTS (IF APPLICABLE) AT BEDSIDE CHRONIC CONDITIONS AFFECTING CARE: NONE SOCIAL DETERMINANTS OF HEALTH AFFECTING CARE: NONE CONSIDERATION OF ADMISSION (OBSERVATION OR ADMISSION): I CONSIDERED ESCALATION OF CARE TO ADMISSION FOR THIS PATIENT, HOWEVER GIVEN THE REASSURING WORKUP, THE PATIENT IS SAFE FOR OUTPATIENT MANAGEMENT. DISCUSSION WITH THE RADIOLOGY: NO TESTS CONSIDERED BUT NOT PERFORMED: PRESCRIPTION MEDICATION CONSIDERED BUT NOT GIVEN: 12 LEAD EKG INTERPRETATION: Time of 1ST Reevaluation: 12:00 Reevaluation 1ST: Unchanged Patient Education/Counseling: Diagnosis, Treatment, Prognosis Family Education/Counseling: No Family Present SEPSIS Sepsis Screen Date sepsis recognized/suspect: Nov 29, 2024 Time Sepsis recognized/suspect: 1050 Recent Procedure: No On Antibiotic Therapy: No Respiratory Rate >20: No Heart Rate >90: Yes Temp<36 C (96.8 F) or >38.3 C: No SBP <90 or MAP <65 mmHG: No New Acute Mental Status Change: No Is the patient on CPAP, BIPAP,: No Vital Signs Date Time Temp Pulse Resp B/P (MAP) Pulse Ox O2 Delivery O2 Flow Rate FiO2 11/29/24 11:56 95 16 95 Room Air 11/29/24 11:56 98.5 95 16 135/82 (99) 96 98.5 11/29/24 10:51 98.8 97 18 129/73 94 98.8 Departure 1 Departure Time of Disposition: 11:52 Impression: Primary Impression: Tonsillar exudate Disposition: 01 HOME / SELF CARE / HOMELESS Condition: Stable e-Prescriptions Ibuprofen Micronized (Ibuprofen) 800 Mg Tab 800 MG PO Q8HP PRN for 10 Days, #30 TAB 0 Refills Prov: BEAR TALAMANTES NP 11/29/24 Methylprednisolone (Medrol Dosepak) 4 Mg Travis 4 MG PO UD, #21 TAB 0 Refills UAD Prov: BEAR TALAMANTES NP 11/29/24 Azithromycin (Azithromycin) 250 Mg Tab 250 MG PO DAILY MDD 500 for 5 Days, #6 TAB 0 Refills 2 TABLETS ORALLY ON DAY ONE, THEN 1 TABLET ORALLY DAILY FOR 4 DAYS Prov: BEAR TALAMANTES NP 11/29/24 Critical Care Note Critical Care Time?: No Stability Stability form required: No Heart Score Heart Score: Heart Score Response (Comments) Value History N/A 0 EKG N/A 0 Age N/A 0 Risk Factors N/A 0 Troponin N/A 0 Total 0 I personally scribed for BEAR TALAMANTES NP ([email or web address]) on 11/29/24 at 12:06. Electronically submitted by Hubert Aguilar ([email or web address]). BEAR TALAMANTES NP Nov 29, 2024 11:53
[2024-11-29 11:56] VITALS: BP 135/82; PULSE 95; RESP 16; TEMP 98.5; O2SAT 95
== END 2024-11-29 12:02 | disposition home or self-care (01) ==
LOC: ER 10:48
DX: J35.8 Other chronic diseases of tonsils and adenoids (principal)

== ENCOUNTER 2024-12-02 09:56 | Emergency (ER) | payer MEDICAID ==
[~2024-12-02] VITALS: Ht 182.9 cm; Wt 84.9 kg
[~2024-12-02 09:56] MED LIST changes: +AZIT-43 PO; +IBUP-1455 PO; +METH4PAK PO
--- NOTE | 2024-12-02 11:18 | ED.PDOC ---
History of Present Illness HPI Comments A 28 YEAR OLD MALE PRESENTS TO THE ED WITH COMPLAINT OF ONGOING SORE THROAT. PATIENT WAS DIAGNOSED WITH TONSILLITIS 3 DAYS AGO AT THE ED, RX ANTIBIOTICS AND IS ON HIS FOURTH DAY. PATIENT REPORTS COUGH WITH NAUSEA AND VOMITING. PATIENT DENIES DIFFICULTY SWALLOWING. PATIENT DENIES FEVER, CHILLS, SHORTNESS OF BREATH, CHEST PAIN, ABDOMINAL PAIN, NAUSEA, VOMITING, HEADACHE, OR OTHER COMPLAINTS. NO OTHER SYMPTOMS OR MODIFYING FACTORS AT THIS TIME. PATIENT IS ALERT, ORIENTED X 4, AND HAS STEADY GAIT. Chief Complaint: Sore Throat Time Seen by MD: 11:12 Primary Care Provider: DENIES Reviewed Notes: Nurses Notes, Medications, Allergies Allergies: Coded Allergies: Penicillins (Verified Allergy, Unknown, 03/14/24) Home Meds Active Scripts Ibuprofen Micronized (Ibuprofen) 800 Mg Tab, 800 MG PO Q8HP PRN for 10 Days, #30 TAB 0 Refills Prov:BEAR TALAMANTES NP 11/29/24 Methylprednisolone (Medrol Dosepak) 4 Mg Travis, 4 MG PO UD, #21 TAB 0 Refills UAD Prov:BEAR TALAMANTES NP 11/29/24 Azithromycin (Azithromycin) 250 Mg Tab, 250 MG PO DAILY MDD 500 for 5 Days, #6 TAB 0 Refills 2 TABLETS ORALLY ON DAY ONE, THEN 1 TABLET ORALLY DAILY FOR 4 DAYS Prov:BEAR TALAMANTES NP 11/29/24 Azithromycin (ZITHROMAX TABLET) 250 Mg Tb, 250 MG PO DAILY, #6 TAB take 2 tab the first day, then 1 tab per day until finish Prov:JOLIE HUFFMAN MD 03/19/24 Pantoprazole Sodium Sesquihydr (Protonix) 40 Mg Tab, 40 MG PO DAILY, #30 TAB Prov:JUDY ARIZA MD 11/15/23 Ondansetron Odt 4MG Tab (ZOFRAN PO) 4 Mg Tb, 4 MG PO Q8HP PRN for 5 Days, #15 TAB ODT TAB-DISSOLVE IN MOUTH, THEN SWALLOW Prov:JUDY ARIZA MD 11/15/23 Information Source: Patient Mode of Arrival: Ambulatory Timing: Days Duration: Since onset Medication Refill: For: Other (THROAT AND NAUSEA ) Past Medical History PAST MEDICAL HISTORY: Anxiety, Depression Surgical History: Denies all surgeries Family History Family History: Reviewed,noncontributory to illness, Unknown Social History Smoker: Non-Smoker Alcohol: Occasionally Drugs: Cocaine, Marijuana, Other Lives In: Home Constitutional: denies: chills, diaphoresis, fatigue, fever, malaise, sweats, weakness, others EENTM: reports: throat pain, throat swelling; denies: blurred vision, double vision, ear bleeding, ear discharge, ear drainage, ear pain, ear ringing, eye pain, eye redness, hearing loss, mouth pain, mouth swelling, nasal discharge, nose bleeding, nose congestion, nose pain, photophobia, tearing, voice changes, others Respiratory: denies: cough, hemoptysis, orthopnea, SOB at rest, shortness of breath, SOB with excertion, stridor, wheezing, others Cardiovascular: denies: chest pain, dizzy spells, diaphoresis, Dyspnea on exertion, edema, irregular heart beat, left arm pain, lightheadedness, palpitations, PND, syncope, others Gastrointestinal: reports: nausea, vomiting; denies: abdomen distended, abdominal pain, blood streaked bowels, constipated, diarrhea, dysphagia, diff iculty swallowing, hematemesis, melena, poor appetite, poor fluid intake, rectal bleeding, rectal pain, others Genitourinary: denies: burning, dysuria, flank pain, frequency, hematuria, incontinence, penile discharge, penile sore, pain, testicle pain, testicle swelling, urgency, others Neurological: denies: dizziness, fainting, headache, left sided numbness, left sided weakness, numbness, paresthesia, pre-existing deficit, right sided numbness, right sided weakness, seizure, speech problems, tingling, tremors, weakness, others Musculoskeletal: denies: back pain, gout, joint pain, joint swelling, muscle pain, muscle stiffness, neck pain, others Integumetry: denies: bruises, change in color, change in hair/nails, dryness, laceration, lesions, lumps, rash, wounds, others Allergic/Immunocompromised: denies: Difficulty Healing, Frequent Infections, Hives, Itching, others Hematologic/Lymphatic: denies: anemia, blood clots, easy bleeding, easy bruising, swollen glands, others Endocrine: denies: excessive hunger, excessive sweating, excessive thirst, excessive urination, flushing, intolerance to cold, intolerance to heat, unexplained weight gain, unexplained weight loss, others Psychiatric: denies: anxiety, bipolar disorder, depression, hopeless, panic disorder, schizophrenia, sleepless, suicidal, others All Other Systems: Reviewed and Negative Physical Exam General Appearance: No Apparent Distress, Normal HEENT: PERRL/EOMI, Pharyngeal Erythema (TONSILLAR SWELLING WITH MILD EXUDATES. ), TMs Normal Neck: Full Range of Motion, Non-Tender, Normal, Normal Inspection Respiratory: Chest Non-Tender, Lungs Clear, No Accessory Muscle Use, No Respiratory Distress, Normal Breath Sounds Cardiovascular: No Edema, No JVD, No Murmur, No Gallop, Normal Peripheral Pulses, Regular Rate/Rhythm Breast Exam: Deferred Gastrointestinal: No Organomegaly, Non Tender, No Pulsatile Mass, Normal Bowel Sounds, Soft Genitalia: Deferred Pelvic: Deferred Rectal: Deferred Extremities: No calf tenderness, Normal capillary refill, Normal inspection, Normal range of motion, Non-tender, No pedal edema Musculoskeletal : Apperance: Normal Neurologic: Alert, drill instructor II-XII nml as Tested, No Motor Deficits, Normal Affect, Normal Mood, No Sensory Deficits Cerebellar Function: Normal Reflexes: Normal Skin: Dry, Normal Color, Warm Peripheral Pulses: 2+ carotid (R), 2+ carotid (L) Lymphatic: No Adenopathy Was a procedure done? Was a procedure done?: No Differential Dx Considerations may include: ACUTE ERYTHEMATOUS TONSILLITIS X-Ray, Labs, Meds, VS Vital Signs Date Time Temp Pulse Resp B/P (MAP) Pulse Ox O2 Delivery O2 Flow Rate FiO2 12/02/24 10:09 98.2 95 15 130/92 96 98.2 X-Ray, Labs, Meds, VS Comment EXTERNAL MEDICAL RECORDS REVIEWED: [NONE] INDEPENDENT HISTORIANS: [NONE] SOCIAL DETERMINANTS OF HEALTH: [NONE] LABS ORDERED: NONE REVIEWED AND INTERPRETED RESULTS: NONE IMAGING ORDERED: NONE TREATMENTS ORDERED: ROCEPHIN 1GM IM AND SOLUMEDROL 125MG IM PROCEDURES PERFORMED: NONE CRITICAL CARE TIME: NONE I HAVE DISCUSSED THE PATIENT WITH THE ATTENDING PHYSICIAN, DR. MAI, HE AGREES WITH THE PATIENT'S PLAN OF CARE AND DISPOSITION. BASED ON HISTORY OF PRESENT ILLNESS, AND PHYSICAL EXAM, PATIENT WILL BE DISCHARGED HOME. DISCUSSED PLAN FOR DISCHARGE HOME WITH RX: ZOFRAN AND 2 % VISCUS LIDOCAINE MEDICATION WARNINGS GIVEN. SHARED DECISION MAKING: DISCUSSED WITH PATIENT THAT THEIR WORKUP WAS NORMAL. PATIENT INSTRUCTED TO FOLLOW UP WITH PRIMARY CARE PROVIDER IN 1-2 DAYS FOR RE- EVALUATION OF SYMPTOMS. PATIENT VERBALIZES UNDERSTANDING TO RETURN TO ED FOR NEW OR WORSENING SYMPTOMS OR IF FOLLOW UP WITH PCP CANNOT BE OBTAINED. PATIENT FEELS COMFORTABLE GOING HOME AT THIS TIME. ALL QUESTIONS ADDRESSED AT TIME OF DISCHARGE. Time of 1ST Reevaluation: 11:40 Reevaluation 1ST: Improved Patient Education/Counseling: Diagnosis, Treatment, Need For Follow Up Family Education/Counseling: Diagnosis, Treatment, No Family Present Medical Screening: No EMC Exist At This Time SEPSIS Sepsis Screen Date sepsis recognized/suspect: Dec 02, 2024 Time Sepsis recognized/suspect: 1014 Recent Procedure: No On Antibiotic Therapy: Yes Respiratory Rate >20: No Heart Rate >90: Yes Temp<36 C (96.8 F) or >38.3 C: No SBP <90 or MAP <65 mmHG: No New Acute Mental Status Change: No Is the patient on CPAP, BIPAP,: No Vital Signs Date Time Temp Pulse Resp B/P (MAP) Pulse Ox O2 Delivery O2 Flow Rate FiO2 12/02/24 10:09 98.2 95 15 130/92 96 98.2 Departure 1 Departure Time of Disposition: 11:40 Impression: Primary Impression: Acute erythematous tonsillitis Disposition: HOME / SELF CARE / HOMELESS Condition: Stable Additional Instructions: FOLLOW-UP WITH PCP IN 1 TO 2 DAYS. TAKE MEDICATIONS PRESCRIBED. RETURN TO ED FOR ANY NEW OR WORSENING SYMPTOMS. e-Prescriptions Lidocaine HCl (Mouth-Throat) (Lidocaine HCl Viscous) 2 % Lucy 10 ML MT TID, #100 ML Prov: CYDNEY WHITEHEAD 12/02/24 Ondansetron Odt 4MG Tab (ZOFRAN PO) 4 Mg Tb 4 MG PO BID, #14 TAB ODT TAB-DISSOLVE IN MOUTH, THEN SWALLOW Prov: CYDNEY WHITEHEAD 12/02/24 Discharged With: Self Critical Care Note Critical Care Time?: No Stability Stability form required: No I personally scribed for CYDNEY WHITEHEAD ([email or web address]) on 12/02/24 at 11:18. Electronically submitted by Barbara Washington ([facility]). I personally scribed for CYDNEY WHITEHEAD ([email or web address]) on 12/02/24 at 11:18. Laila ctronically submitted by Barbara Washington ([facility]). CYDNEY WHITEHEAD Dec 02, 2024 11:18
[2024-12-02] MEDS ORDERED: ZOFR4T PO (11:24)
[2024-12-02] MEDS ORDERED: LIDO2SOL26 MT (11:24)
[2024-12-02] MEDS: methylPREDNISolone SOD SUCC 125 MG/2 ML VL IM ONE (11:31)
[2024-12-02] MEDS: cefTRIAXone SOD 1,000 MG VL IM ONE (11:31)
[2024-12-02 11:35] VITALS: BP 130/92; PULSE 95; RESP 15; TEMP 98.2; O2SAT 96
== END 2024-12-02 11:38 | disposition home or self-care (01) ==
LOC: ER 09:56
DX: J03.90 Acute tonsillitis, unspecified (principal); F10.90 Alcohol use, unspecified, uncomplicated; F12.90 Cannabis use, unspecified, uncomplicated; F41.9 Anxiety disorder, unspecified; F32.A Depression, unspecified; Z79.899 Other long term (current) drug therapy; Y90.9 Presence of alcohol in blood, level not specified
CPT/HCPCS: 96372; 99284; J0696; J2919

== ENCOUNTER 2024-12-04 21:44 | Emergency (ER) | payer MEDICAID ==
[~2024-12-04] VITALS: Ht 182.9 cm; Wt 87.9 kg
[~2024-12-04 21:44] MED LIST changes: +LIDO2SOL26 MT
[2024-12-04 21:53] VITALS: BP 129/93; RESP 16; TEMP 98.3; O2SAT 96
[2024-12-04 23:22] VITALS: PULSE 79
--- NOTE | 2024-12-04 23:22 | ED.PDOC ---
History of Present Illness HPI Comments 28 y/o M presents with c/c of throat pain, with associated chest discomfort. Patient endorses on having symptoms following recent tonsillitis diagnosis, last week. Denies any throat swelling, shortness of breath, or further associated symptoms. Chief Complaint: Chest Pain Time Seen by MD: 23:10 Primary Care Provider: DENIES Reviewed Notes: Nurses Notes, Medications, Allergies Allergies: Coded Allergies: Penicillins (Verified Allergy, Unknown, 03/14/24) Home Meds Active Scripts Lidocaine HCl (Mouth-Throat) (Lidocaine HCl Viscous) 2 % Lucy, 10 ML MT TID, #100 ML Prov:CYDNEY WHITEHEAD 12/02/24 Ondansetron Odt 4MG Tab (ZOFRAN PO) 4 Mg Tb, 4 MG PO BID, #14 TAB ODT TAB-DISSOLVE IN MOUTH, THEN SWALLOW Prov:CYDNEY WHITEHEAD 12/02/24 Ibuprofen Micronized (Ibuprofen) 800 Mg Tab, 800 MG PO Q8HP PRN for 10 Days, #30 TAB 0 Refills Prov:BEAR TALAMANTES NP 11/29/24 Methylprednisolone (Medrol Dosepak) 4 Mg Travis, 4 MG PO UD, #21 TAB 0 Refills UAD Prov:BEAR TALAMANTES NP 11/29/24 Azithromycin (Azithromycin) 250 Mg Tab, 250 MG PO DAILY MDD 500 for 5 Days, #6 TAB 0 Refills 2 TABLETS ORALLY ON DAY ONE, THEN 1 TABLET ORALLY DAILY FOR 4 DAYS Prov:BEAR TALAMANTES NP 11/29/24 Azithromycin (ZITHROMAX TABLET) 250 Mg Tb, 250 MG PO DAILY, #6 TAB take 2 tab the first day, then 1 tab per day until finish Prov:JOLIE HUFFMAN MD 03/19/24 Pantoprazole Sodium Sesquihydr (Protonix) 40 Mg Tab, 40 MG PO DAILY, #30 TAB Prov:JUDY ARIZA MD 11/15/23 Ondansetron Odt 4MG Tab (ZOFRAN PO) 4 Mg Tb, 4 MG PO Q8HP PRN for 5 Days, #15 TAB ODT TAB-DISSOLVE IN MOUTH, THEN SWALLOW Prov:JUDY ARIZA MD 11/15/23 Information Source: Patient Mode of Arrival: Ambulatory Severity: Moderate Timing: Days Duration: Since onset Past Medical History PAST MEDICAL HISTORY: Anxiety, Depression Surgical History: Denies all surgeries Family History Family History: Reviewed,noncontributory to illness, Unknown Social History Smoker: Non-Smoker Alcohol: Occasionally Drugs: Cocaine, Marijuana, Other Lives In: Home All Other Systems: Reviewed and Negative (Comprehensive review of systems are negative unless stated in HPI) Physical Exam General Appearance: No Apparent Distress, Normal HEENT: Normal ENT Inspection, Pharyngeal Erythema Neck: Full Range of Motion, Non-Tender Respiratory: Lungs Clear, No Respiratory Distress, Normal Breath Sounds Cardiovascular: No Edema, No JVD, No Murmur, No Gallop, Normal Peripheral Pulses, Regular Rate/Rhythm Breast Exam: Deferred Gastrointestinal: No Organomegaly, Non Tender, No Pulsatile Mass, Normal Bowel Sounds, Soft Genitalia: Deferred Pelvic: Deferred Rectal: Deferred Extremities: Normal capillary refill, Normal range of motion Musculoskeletal : Apperance: Normal Neurologic: Alert, No Motor Deficits, Normal Affect, Normal Mood, No Sensory Deficits Cerebellar Function: Normal Reflexes: Normal Skin: Dry, Normal Color, Warm Lymphatic: No Adenopathy Was a procedure done? Was a procedure done?: No EKG EKG : Pulse Rate (adult): 79 [place]: Normal Cardiac Rhythm: NSR Block: None Hypertrophy: None ST: Normal Differential Dx Considerations may include: tonsillitis, pharyngitis, viral syndrome, among others X-Ray, Labs, Meds, VS Vital Signs Date Time Temp Pulse Resp B/P (MAP) Pulse Ox O2 Delivery O2 Flow Rate FiO2 12/04/24 23:22 79 12/04/24 21:58 79 12/04/24 21:53 98.3 95 16 129/93 96 98.3 Time of 1ST Reevaluation: 23:40 Reevaluation 1ST: Unchanged Time of 2ND Reevaluation: 00:46 Reevaluation 2ND: Improved Patient Education/Counseling: Diagnosis, Treatment, Need For Follow Up Family Education/Counseling: No Family Present SEPSIS Sepsis Screen Date sepsis recognized/suspect: Dec 04, 2024 Time Sepsis recognized/suspect: 2156 Recent Procedure: No On Antibiotic Therapy: Yes Respiratory Rate >20: No Heart Rate >90: No Temp<36 C (96.8 F) or >38.3 C: No SBP <90 or MAP <65 mmHG: No New Acute Mental Status Change: No Is the patient on CPAP, BIPAP,: No Vital Signs Date Time Temp Pulse Resp B/P (MAP) Pulse Ox O2 Delivery O2 Flow Rate FiO2 12/04/24 23:22 79 12/04/24 21:58 79 12/04/24 21:53 98.3 95 16 129/93 96 98.3 Departure 1 Departure Time of Disposition: 00:44 Impression: Primary Impression: Pharyngitis Qualified Codes: J02.9 - Acute pharyngitis, unspecified Disposition: HOME / SELF CARE / HOMELESS Condition: Stable Discharged With: Self Critical Care Note Critical Care Time?: No Stability Stability form required: No Heart Score Heart Score: Heart Score Response (Comments) Value History N/A 0 EKG N/A 0 Age N/A 0 Risk Factors N/A 0 Troponin N/A 0 Total 0 I personally scribed for ER ([email or web address]) on 12/04/24 at 23:22. Electronically submitted by Marcial Beth ([email or web address]). ER Dec 04, 2024 23:22 TOI ENAMORADO LEGAL DEPARTMENT MANAGER Dec 05, 2024 00:47
--- NOTE | 2024-12-08 09:27 | ECG ---
[facility] Test Date: 2024-12-04 Test Time: 21:58:09 Pat Name: MISSY MYERS Department: ED Room: Gender: [employer] Layout Designer: : 1995 Requested By: TOI ENAMORADO Order Number: [id number] Reading MD: Garth Richards Measurements Intervals Yolyn Rate: 79 P: 57 IL: 143 QRS: 44 QRSD: 95 T: 62 QT: 352 QTc: 404 Interpretive Statements Sinus rhythm ST elevation suggests acute pericarditis Electronically Signed On 12-10-2024 18:38:09 PDT by Garth Richards Please click the below link to view image of tracing.
== END 2024-12-05 00:46 | disposition home or self-care (01) ==
LOC: ER 21:44
DX: J02.9 Acute pharyngitis, unspecified (principal); R07.89 Other chest pain; Z88.0 Allergy status to penicillin
CPT/HCPCS: 93005